=== PATIENT | female | born 1950 | race Two or more races ===

== ENCOUNTER 2016-07-31 19:59 | Inpatient (IN) | payer OTHER ==
[~2016-07-31] VITALS: Ht 162.6 cm; Wt 78.1 kg
[~2016-07-31 19:59] MED LIST: AMIODARONE 150 MG INJ ONE; ATROPINE 1 MG/10 ML SYRINGE ONE; CA CHLORIDE 10% 10 ML SYRINGE ONE; EPINEPHrine 0.1 MG/ML SYG ONE; MAGNESIUM SULFATE 1 GM/100 ML D5W IVPB ONE
[2016-07-31] MEDS ORDERED: LEVO125T75 PO (20:54)
[2016-07-31] MEDS ORDERED: HYD25 PO (20:54)
[2016-07-31] MEDS ORDERED: ENAL10TA PO (20:54)
[2016-07-31] MEDS ORDERED: SERT50TA6 PO (20:55)
[2016-07-31 20:59] LABS: ADD SCAN DIFF NO
[2016-07-31 21:02] VITALS: TEMP 98.7
[2016-07-31 21:03] LABS: BASOPHILS % 0.1 % (0.0-2.0); EOSINOPHILS % 0.1 % (0.0-7.0); HEMATOCRIT 45.3 % (37.0-47.0); HEMOGLOBIN 14.6 g/dl (12.0-16.0); LYMPHOCYTES # 1.3 10^3/ul (0.8-2.9); MEAN CORPUSCULAR HEMOGLOBIN 31.7 pg (29.0-33.0); MEAN CORPUSCULAR HGB CONC 32.2 g/dl (32.0-37.0); MEAN CORPUSCULAR VOLUME 98.3 fl (82.0-101.0); MEAN PLATELET VOLUME 12.5 fl (7.4-10.4); MONOCYTE # 0.7 10^3/ul (0.3-0.9); MONOCYTES % 5.1 % (0.0-11.0); NEUTROPHIL # 11.9 10^3/ul (1.6-7.5); NEUTROPHILS % 84.6 % (39.0-77.0); PLATELET COUNT 184 10^3/UL (140-415); RED BLOOD COUNT 4.61 10^6/ul (4.20-5.40); RED CELL DISTRIBUTION WIDTH 17.2 % (11.5-14.5)
--- NOTE | 2016-07-31 21:10 | RADRPT ---
PROCEDURE: XR Chest. CLINICAL INDICATION: Dyspnea TECHNIQUE: Single frontal chest x-ray. COMPARISON: None. FINDINGS: Cardiomegaly with increased vascular congestion and moderate pulmonary edema is seen. Findings are consistent with moderate CHF. Underlying pneumonia is not excluded. Increased density and atelecta sis is seen within the lung bases bilaterally. There is elevation of the hemidiaphragms. The upper mediastinal silhouette is unremarkable. There is no pneumothorax and the surrounding osseous struc tures are unremarkable. IMPRESSION: 1. Cardiomegaly with moderate CHF. 2. Dense atelectasis in the lung bases. Pneumonia is not excluded. RPTAT: HMJB .Tony Oconnor MD, Date Time Electronically viewed and signed by .Tony Oconnor MD, on 07/31/2016 21:10 .B/
[2016-07-31 21:18] LABS: INR 1.12; PROTIME 14.4 Sec (12.2-14.2); PT RATIO 1.1
[2016-07-31 21:19] LABS: PARTIAL THROMBOPLASTIN TIME 27.3 Sec (25.0-35.0)
[2016-07-31 21:24] LABS: AADO2 Arterial 138.3 mmHg (7.0-24.0); Arterial Base Excess 1.1 mmol/L (-3.0-3); Arterial COHb 0.9 % (0.0-3.0); Arterial Fraction of Oxyhgb 90.2 % (93.0-99.0); Arterial HCO3 23.4 mmol/L (22.0-26.0); Arterial MetHb 0.3 % (0.0-1.5); Arterial Total Hemglobin 14.5 g/dl (12.0-18.0); MODE NASAL CANNULA
[2016-07-31 21:25] LABS: ALBUMIN 3.4 g/dl (3.3-4.9); ALBUMIN/GLOBULIN RATIO 0.94; BILIRUBIN,INDIRECT 1.1 mg/dl (0-1.1); BILIRUBIN,TOTAL 1.1 mg/dl (0.2-1.3); CALCIUM 9.3 mg/dl (8.4-10.2); CREATININE 1.28 mg/dl (0.44-1.00); POTASSIUM 3.7 mmol/L (3.5-5.1)
[2016-07-31 21:45] LABS: TROPONIN-I 0.167 ng/ml (0.00-0.12)
[2016-07-31] MEDS ORDERED: CEFTRIAXONE 1 GM/50 ML (PMX) 50 ML IVPB ONE (22:00)
[2016-07-31] MEDS ORDERED: MIDAZOLAM (DRIP) 50 mg/50 mL 50 ML IV STA ×2 (22:17→22:26)
[2016-07-31 22:18] LABS: ADD UMIC YES; URINE BILIRUBIN (Dip) 2+ (NEGATIVE); URINE BLOOD (Dip) 2+ (NEGATIVE); URINE COLOR AMBER (YELLOW); URINE GLUCOSE (Dip) NEGATIVE (NEGATIVE); URINE KETONES (Dip) NEGATIVE (NEGATIVE); URINE LEUKOCYTE ESTERASE (Dip) NEGATIVE (NEGATIVE); URINE NITRITE (Dip) POSITIVE (NEGATIVE); URINE TOTAL PROTEIN (Dip) 1+ (NEGATIVE); URINE UROBILINOGEN (Dip) 2.0 E.U./dL (0.1-1.0)
[2016-07-31] MEDS ORDERED: LORAZEPAM 2 MG INJ ONE (22:21)
[2016-07-31] MEDS ORDERED: SODIUM CHLORIDE 0.9% 1L BAG IV* STA (22:26)
[2016-07-31 22:29] LABS: ICTOTEST NEGATIVE (NEGATIVE)
[2016-07-31] MEDS ORDERED: PIPER-TAZO 3.375 GM IV (PMX) 100 ML IVPB ONE (22:30)
[2016-07-31] MEDS ORDERED: LORAZEPAM 2 MG INJ IV ONE (22:30)
[2016-07-31] MEDS ORDERED: VANCOMYCIN 1 GM (PMX) 250 ML IVPB SCH (22:30)
[2016-07-31] MEDS ORDERED: NORepinephrine 8MG/250 ML (PMX 250 ML IV SCH ×2 (22:30→23:30)
[2016-07-31 22:31] LABS: BACTERIA,URINE FEW; MUCUS,URINE FEW; SQUAMOUS EPITHELIAL CELL,UR FEW
--- NOTE | 2016-07-31 23:19 | RADRPT ---
PROCEDURE: XR Chest. CLINICAL INDICATION: Airspace disease. The patient is status post intubation. TECHNIQUE: Single frontal view of the chest. COMPARISON: 07/31/2016. FINDINGS: New endotracheal intubation is seen with tip about 27 mm above the delfina. New right central venous line in place with tip in the superior vena cava right atrial junction. Cardiomegaly. Atherosclerotic calcifications in the thoracic aorta. Bilateral patchy air space dis ease again seen with questioned nodular changes in the right lung base and left lung base. Recommen d CT examination of the chest for further evaluation. No signs of pleural fluid or pneumothorax are seen. The osseous structures and soft tissues are unre markable. IMPRESSION: 1. New endotracheal intubation is seen, with tip about 27 mm above the delfina. 2. New right central venous line in place, with tip in the superior vena cava right atrial junction . 3. Bilateral air space disease again seen, with nodular changes suspected in the right lung and lef t lung bases. 4. Recommend CT examination of the chest for further evaluation. Physician Maddie Date Time Electronically viewed and signed by Physician Maddie on 07/31/2016 23:19 RS/
[2016-07-31 23:24] LABS: AADO2 Arterial 303.2 mmHg (7.0-24.0); Arterial Base Excess -3.4 mmol/L (-3.0-3); Arterial COHb 0.1 % (0.0-3.0); Arterial Fraction of Oxyhgb 96.4 % (93.0-99.0); Arterial HCO3 19.1 mmol/L (22.0-26.0); Arterial MetHb 0.2 % (0.0-1.5); Arterial Total Hemglobin 12.4 g/dl (12.0-18.0); Blood Gas Mean Airway Pressure 13; MODE VENT - AC
[2016-07-31] MEDS ORDERED: FUROSEMIDE 40 MG INJ ONE (23:26)
[2016-07-31] MEDS ORDERED: FUROSEMIDE 40 MG INJ IV ONE (23:30)
[2016-07-31] MEDS ORDERED: IPRATROPIUM (HFA) 12.9 GM INHALER INH PRN (23:30)
[2016-07-31] MEDS ORDERED: ONDANSETRON 4 MG INJ IV PRN (23:30)
[2016-07-31] MEDS ORDERED: ACETAMINOPHEN 650MG/20.3ML CUP PO PRN (23:30)
[2016-07-31] MEDS ORDERED: ALBUTEROL 18 GM INHALER INH PRN (23:30)
[2016-07-31] MEDS ORDERED: ROCURONIUM 50 MG INJ IV ONE (23:30)
[2016-07-31] MEDS ORDERED: LORAZEPAM 2 MG INJ IV PRN (23:30)
[2016-07-31] MEDS ORDERED: PROPOFOL 100 ML IV SCH (23:30)
--- NOTE | 2016-07-31 23:42 | ERA ---
ER Documentation Chief Complaint Date/Time DATE: 07/31/16 TIME: 23:21 Chief Complaint Weakness x10 days. pt is tachycardic and tachypneic. Low O2 sats HPI 65-year-old woman brought in by a friend for about a week of dizziness, shortness of breath, peripheral edema, and feeling weak. Patient denies fevers or chills, no chest pain, no vomiting or diarrhea. Patient was an extremely difficult historian and cannot provide further HPI. ROS All systems reviewed and are negative except as per history of present illness. Medications Home Meds Reported Medications Sertraline Hcl* (Sertraline Hcl*) 50 Mg Tablet, 50 MG PO DAILY, #30 TAB 07/31/16 Hydrochlorothiazide* (Hydrochlorothiazide*) 25 Mg Tab, 25 MG PO DAILY, #30 TAB 07/31/16 Levothyroxine Sodium* (Levothyroxine Sodium*) 125 Mcg Tablet, 125 MCG PO BEFORE BREAKFAST, #30 TAB 07/31/16 Enalapril Maleate* (Enalapril Maleate*) 10 Mg Tablet, 10 MG PO BID, TAB 07/31/16 Allergies Allergies: Coded Allergies: propoxyphene (Verified Adverse Reaction, Mild, 07/31/16) PMhx/Soc Hypertension, hypothyroidism, possible psychiatric illness History of Surgery: No Anesthesia Reaction: No Hx Neurological Disorder: No Hx Respiratory Disorders: No Hx Cardiac Disorders: Yes (htn) Hx Psychiatric Problems: No Hx Miscellaneous Medical Probl: Yes (hypothyroid) Hx Alcohol Use: No Hx Substance Use: No Hx Tobacco Use: No Smoking Status: Never smoker FmHx Family History: No diabetes Physical Exam Vitals Vital Signs Date Time Temp Pulse Resp B/P Pulse Ox O2 Delivery O2 Flow Rate FiO2 07/31/16 22:15 108 19 100 60 07/31/16 22:10 96 14 73/40 98 Mechanical Ventilator 07/31/16 21:02 98.7 103 30 122/84 94 Nasal Cannula 4.0 07/31/16 21:02 Nasal Cannula 4 07/31/16 21:02 4.0 07/31/16 20:14 98.5 111 32 113/75 93 Physical Exam GENERAL: Well-developed, elderly, appears debilitated and dehydrated, tachypneic , dyspneic, afebrile HEENT: Dry mucous membranes, pink conjunctiva, no cervical spine deformity, no goiter, no jaundice NEURO: Alert and oriented 2, appears confused, able to answer simple questions and follow simple commands, no nystagmus, pupils equal round reactive to light CARDIAC: Tachycardic and regular, no murmurs rubs LUNGS: Poor air entry bilaterally, bibasilar crackles, no wheezing or stridor ABDOMEN: Soft nontender, no guarding, no rigidity, no rebound, no psoas sign no obturator sign. SKIN: Warm and dry to touch, no abrasions or lacerations, no ulcers, no target lesion EXTREMITIES: Bilateral lower extremity peripheral edema 3+, calves bilaterally symmetrical, no popliteal cord sign PSYCH: Mildly agitated Result Diagram: 08/01/16 0450 08/01/16 0450 Results 24 hrs Laboratory Tests Test 07/31/16 20:29 07/31/16 20:35 07/31/16 20:40 07/31/16 21:20 Blood Gas Specimen Source Blood arterial Arterial Blood Date Drawn 07/31/2016 9:15:40 PM Arterial Blood pH (Temp corrected) 7.499 Arterial Blood pCO2 (Temp correct) 30.8mmhg Arterial Blood pO2 (Temp corrected) 61.0mmHG Arterial Blood HCO3 23.4mmol/L Arterial Blood Base Excess 1.1mmol/L Arterial Blood Oxygen Saturation 91.3mmHG Clarence Test N/A Arterial Blood Gas Puncture Site Right Brachial Arterial Blood Carboxyhemoglobin 0.9% Arterial Blood Methemoglobin 0.3% Blood Gas A-a O2 Differential 138.3mmHg Oxyhemoglobin Percent 90.2% Total Hemoglobin 14.5g/dl Blood Gas Temperature 37.0C Blood Gas Actual Respiration Rate 36 Blood Gas Modality NASAL CANNULA FiO2 33.0% Blood Gas Critical Value Read Back Jose SORENSEN Blood Gas Notified Whom BL Blood Gas Notified Time 07/31/2016 9:24:36 PM White Blood Count 14.010^3/ul Red Blood Count 4.6110^6/ul Hemoglobin 14.6g/dl Hematocrit 45.3% Mean Corpuscular Volume 98.3fl Mean Corpuscular Hemoglobin 31.7pg Mean Corpuscular Hemoglobin Concent 32.2g/dl Red Cell Distribution Width 17.2% Platelet Count 47746^3/UL Mean Platelet Volume 12.5fl Neutrophils % 84.6% Lymphocytes % 9.0% Monocytes % 5.1% Eosinophils % 0.1% Basophils % 0.1% Nucleated Red Blood Cells % 0.0/100WBC Neutrophils # 11.910^3/ul Lymphocytes # 1.310^3/ul Monocytes # 0.710^3/ul Eosinophils # 0.010^3/ul Basophils # 0.010^3/ul Nucleated Red Blood Cells # 0.010^3/ul Prothrombin Time 14.4Sec Prothrombin Time Ratio 1.1 INR International Normalized Ratio 1.12 Activated Partial Thromboplast Time 27.3Sec Sodium Level 142mmol/L Potassium Level 3.7mmol/L Chloride Level 104mmol/L Carbon Dioxide Level 26mmol/L Anion Gap 16 Blood Urea Nitrogen 26mg/dl Creatinine 1.28mg/dl Glucose Level 133mg/dl Lactic Acid Level 4.8mmol/L Calcium Level 9.3mg/dl Total Bilirubin 1.1mg/dl Direct Bilirubin 0.00mg/dl Indirect Bilirubin 1.1mg/dl Aspartate Amino Transf (AST/SGOT) 41IU/L Alanine Aminotransferase (ALT/SGPT) 63IU/L Alkaline Phosphatase 93IU/L Troponin I 0.167ng/ml B-Type Natriuretic Peptide 14329UI/ML Total Protein 7.0g/dl Albumin 3.4g/dl Globulin 3.60g/dl Albumin/Globulin Ratio 0.94 Lipase 147U/L Bedside Glucose 110mg/dL Urine Color SMIEON Urine Clarity CLOUDY Urine pH 6.0 Urine Specific [place] 1.025 Urine Ketones NEGATIVE Urine Nitrite POSITIVE Urine Bilirubin 2+ Urine Ictotest NEGATIVE Urine Urobilinogen 2.0 E.U./dL Urine Leukocyte Esterase NEGATIVE Urine Microscopic RBC 5-10/HPF Urine Microscopic WBC 0-2/HPF Urine Squamous Epithelial Cells FEW Urine Bacteria FEW Urine Mucus FEW Urine Hemoglobin 2+ Urine Glucose NEGATIVE% Urine Total Protein 1+ Test 07/31/16 22:25 Lactic Acid Level 3.9mmol/L Current Medications Medications (Trade) Dose Ordered Sig/Cyndi Route PRN Reason Start Time Stop Time Status Last Admin Dose Admin Ceftriaxone Sodium 50 ml @ 100 mls/hr ONCE ONCE IVPB 07/31/16 22:00 07/31/16 22:29 DC 07/31/16 21:42 Midazolam HCl (Versed) 50 ml @ 3 mls/hr ONCE STAT IV 07/31/16 22:17 08/01/16 01:06 DC 07/31/16 22:23 Lorazepam (Ativan) 2 mg STK-MED ONCE .ROUTE 07/31/16 22:21 07/31/16 22:22 DC Procedures/[facility] IV line was established patient was placed on cardiac tech rhythm strip revealed a sinus tachycardia at 110 bpm with upright P and T waves. Patient was afebrile. Blood and urine cultures have been ordered results are pending I will follow-up. Mayo catheter was later placed. Patient was placed on high flow oxygen and with a trial of high flow oxygen patient remained dyspneic and tachypnic. Initial ABG performed, read by me revealed a pH of 7.5, PCO2 31, PO2 61 revealing respiratory alkalosis and hypoxemia. EKG performed, read by me revealed a sinus tachycardia at 104 bpm, left axis deviation, narrow QRS complex, no obvious ST elevations or depressions noted although there are poor R-wave progression in precordial leads. One view chest x-ray performed, read by me there is cardiomegaly and bilateral pulmonary edema with bilateral infiltrates, no pneumothorax, no air under the diaphragm. CBC reveals a leukocytosis of 14, electrolytes revealed dehydration and acute kidney injury with a BUN/creatinine of 26/1.3, liver function tests were within normal limits, troponin positive at 0.2 and BNP elevated at over 55,000. Lactic acid elevated at 4.8, repeat lactic acid 3.9 and elevated. Urine analysis was positive for infection. Patient is in respiratory distress despite high flow oxygen and has an abnormal ABG. I suspect severe sepsis versus septic shock and feel the patient will benefit from intubation. She requires high-dose IV fluid resuscitation but has pulmonary edema and will also require diuresis and I do not suspect she can maintain adequate breathing if I administer IV fluids, which she also requires. I spoke to her clearly and told her about the risks and benefits of intubation and central line placement. Patient agreed both verbally and signed the consent forms. I ordered 3 L normal saline intravenously for septic shock, furosemide 80 mg IV for diuresis, ceftriaxone 1 g IV, Zosyn 3.375 g IV, vancomycin 1 g IV. Patient also received aspirin 300 mg per rectum for cardioprotective measures. Endotracheal Intubation by me: Pre assessment performed. See preceding note for details. Pre-oxygenation performed with 100% oxygen RSI: Performed w/o complication or hypoxic events. Medications as ordered. Blade: Mac 4 ET Tube: 7.5 cm Depth: 23 cm at the lip Intubation confirmed by colorimetric CO2, equal breath sounds, quiet over the stomach. Central Line Placement by me: Patient consented, sterilely draped, full prep, gown, glove, mask, time out performed. Anesthesia: 1% lidocaine locally Location: Right subclavian vein Device: Multiple lumen Technique: Seldinger technique. Secured with suture. Results: Venous return from all ports with easy saline flush. No complications. The entire Guide wire retrieved and disposed of. Chest X-ray 1V Interpreted by me: ET tube 3 cm above the delfina. Normal soft tissue, No pneumothorax. Positive cardiomegaly and bilateral pulmonary infiltrates and edema. Central line is in place in the right subclavian vein Patient's infectious symptoms have not stabilized and the patient is at risk of rapid decompensation. The patient will be admitted for careful hydration, antibiotic therapy, and infectious source control. Severe Sepsis Assessment: Infectious Source: Bilateral pneumonia and urinary tract infection End organ damage indicated by: Lactate > 2.0 mmol/L Hypotension( SBP < 90 or >40 mmHG drop or MAP < 65) Acute Resp Failure (sat < 92% w/o oxygen) Severe Sepsis Managment: Blood Cultures X 2 before broad spectrum antibiotics initiated within 3 hours of recognition. 30 ml/kg NS bolus Completed Initial Lactate: 4.8 Repeat Lactate 3.9 Critical Care: Time: 50 minutes, this was time separate from other procedures Treatments/Evaluations: Emergent fluid management, while maintaining close respiratory support. Immediate broad spectrum antibiotic therapy. Simultaneous assessment for possible sources in order to direct therapy. Consideration for invasive and chemical support to prevent respiratory or cardiac collapse. Septic Shock Assessment (1 hour post 30 ml/kg fluid bolus): Hypotension (SBP < 90 or 40 mmHg drop, MAP < 65): Yes Lactic acid > 4.0 yes Perfusion Reassessment for Septic Shock: Temp afebrile, pulse 110 bpm, blood pressure 100/60 mmHg, respiratory rate intubated at 16 breaths per minute Heart Exam: Tachycardic Lung Exam: Bilateral crackles Capillary Refill: Delayed Peripheral Pulses: Radially present Skin: Mottled, pale Hypotensive Treatment (not required for isolated lactic acid elevation): Comfort Care: No Central LIne: In the right subclavian vein Vasopressor started: norepinephrine I considered further perfusion assessment with CVP measurement, SCVO2, bedside ultrasound volume assessment, passive leg raise, trial of further fluid bolus. And preceded with IV hydration, diuretics, IV antibiotics. Patient was intubated and placed on a Versed drip and norepinephrine titrated to keep SBP over 90 mmHg. Repeat arterial blood gas postintubation improved revealing a pH of 7.46, PCO2 27, PO2 95 revealing respiratory alkalosis and improved PaO2. For continued sedation patient required lorazepam boluses followed by midazolam drip. Accepting Care Team: Current data and ongoing care discussed. Time: Time of admission Primary Provider: Hospitalist Consulting: Infectious disease, pulmonology, cardiology Outstanding Data: none Departure Diagnosis: Primary Impression: Septic shock Additional Impressions: Bilateral pneumonia Qualified Code: J18.9 - Pneumonia of both lower lobes due to infectious organism CHF (congestive heart failure) Qualified Code: I50.21 - Acute systolic congestive heart failure UTI (urinary tract infection) Qualified Code: N30.00 - Acute cystitis without hematuria Acute kidney injury Dehydration Acute respiratory failure Qualified Code: J96.01 - Acute respiratory failure with hypoxia Acute encephalopathy Condition: Critical SCOT HUERTA MD July 31, 2016 23:38 Albuterol (Ventolin Hfa) 4 puff Q2H RESP THERAPY PRN INH SHORTNESS OF BREATH 07/31/16 23:30 Ipratropium [place] (Atrovent Hfa) 4 puff Q2H RESP THERAPY PRN INH SHORTNESS OF BREATH 07/31/16 23:30 Acetaminophen (Tylenol Liquid) 650 mg Q6H PRN PO PAIN LEVEL 1-3 OR FEVER 07/31/16 23:30 Lorazepam (Ativan) 1 mg Q2H PRN IV ANXIETY 07/31/16 23:30 Famotidine (Pepcid Iv) 20 mg DAILY IV 08/01/16 09:00 Heparin Sodium (Porcine) 5000 unit 5,000 unit Q12 SC 08/01/16 09:00 Propofol 100 ml @ 2.7 mls/hr PER PROTOCOL IV 07/31/16 23:30 Norepinephrine 250 ml @ 1.875 mls/ hr PER PROTOCOL IV 07/31/16 23:30 Cefepime HCl (Maxipime 1gm/50 ml (Pmx)) 50 ml @ 100 mls/hr Q12 IVPB 08/01/16 09:00 Rocuronium [place] (Zemuron) 60 mg ONCE ONCE IV 07/31/16 23:30 07/31/16 23:31 DC 07/31/16 23:28 Furosemide (Lasix) 80 mg ONCE ONCE IV 07/31/16 23:30 07/31/16 23:31 DC 07/31/16 23:32 Furosemide (Lasix) 40 mg STK-MED ONCE .ROUTE 07/31/16 23:26 07/31/16 23:27 DC Midazolam HCl (Versed) 2 mg ONCE ONCE IV 08/01/16 00:00 08/01/16 00:01 Aspirin (Aspirin) [address] 08/01/16 00:00 08/01/16 00:01 [facility] IV line was established patient was placed on cardiac tech rhythm strip revealed a sinus tachycardia at 110 bpm with upright P and T waves. Patient was afebrile. Blood and urine cultures have been ordered results are pending I will follow-up. Mayo catheter was later placed. Patient was placed on high flow oxygen and with a trial of high flow oxygen patient remained dyspneic and tachypnic. Initial ABG performed, read by me revealed a pH of 7.5, PCO2 31, PO2 61 revealing respiratory alkalosis and hypoxemia. EKG performed, read by me revealed a sinus tachycardia at 104 bpm, left axis deviation, narrow QRS complex, no obvious ST elevations or depressions noted although there are poor R-wave progression in precordial leads. One view chest x-ray performed, read by me there is cardiomegaly and bilateral pulmonary edema with bilateral infiltrates, no pneumothorax, no air under the diaphragm. CBC reveals a leukocytosis of 14, electrolytes revealed dehydration and acute kidney injury with a BUN/creatinine of 26/1.3, liver function tests were within normal limits, troponin positive at 0.2 and BNP elevated at over 55,000. Lactic acid elevated at 4.8, repeat lactic acid 3.9 and elevated. Urine analysis was positive for infection. Patient is in respiratory distress despite high flow oxygen and has an abnormal ABG. I suspect severe sepsis versus septic shock and feel the patient will benefit from intubation. She requires high-dose IV fluid resuscitation but has pulmonary edema and will also require diuresis and I do not suspect she can maintain adequate breathing if I administer IV fluids, which she also requires. I spoke to her clearly and told her about the risks and benefits of intubation and central line placement. Patient agreed both verbally and signed the consent forms. I ordered 3 L normal saline intravenously for septic shock, furosemide 80 mg IV for diuresis, ceftriaxone 1 g IV, Zosyn 3.375 g IV, vancomycin 1 g IV. Patient also received aspirin 300 mg per rectum for cardioprotective measures. Endotracheal Intubation by me: Pre assessment performed. See preceding note for details. Pre-oxygenation performed with 100% oxygen RSI: Performed w/o complication or hypoxic events. Medications as ordered. Blade: Mac 4 ET Tube: 7.5 cm Depth: 23 cm at the lip Intubation confirmed by colorimetric CO2, equal breath sounds, quiet over the stomach. Central Line Placement by me: Patient consented, sterilely draped, full prep, gown, glove, mask, time out performed. Anesthesia: 1% lidocaine locally Location: Right subclavian vein Device: Multiple lumen Technique: Seldinger technique. Secured with suture. Results: Venous return from all ports with easy saline flush. No complications. The entire Guide wire retrieved and disposed of. Chest X-ray 1V Interpreted by me: ET tube 3 cm above the delfina. Normal soft tissue, No pneumothorax. Positive cardiomegaly and bilateral pulmonary infiltrates and edema. Central line is in place in the right subclavian vein Patient's infectious symptoms have not stabilized and the patient is at risk of rapid decompensation. The patient will be admitted for careful hydration, antibiotic therapy, and infectious source control. Severe Sepsis Assessment: Infectious Source: Bilateral pneumonia and urinary tract infection End organ damage indicated by: [Lactate > 2.0 mmol/L Hypotension( SBP < 90 or >40 mmHG drop or MAP < 65) Acute Resp Failure (sat < 92% w/o oxygen) Severe Sepsis Managment: Blood Cultures X 2 before broad spectrum antibiotics initiated within 3 hours of recognition. 30 ml/kg NS bolus Completed Initial Lactate: 4.8 Repeat Lactate 3.9 Critical Care: Time: 50 minutes, this was time separate from other procedures Treatments/Evaluations: Emergent fluid management, while maintaining close respiratory support. Immediate broad spectrum antibiotic therapy. Simultaneous assessment for possible sources in order to direct therapy. Consideration for invasive and chemical support to prevent respiratory or cardiac collapse. Septic Shock Assessment (1 hour post 30 ml/kg fluid bolus): Hypotension (SBP < 90 or 40 mmHg drop, MAP < 65): Yes Lactic acid > 4.0 yes Perfusion Reassessment for Septic Shock: Temp afebrile, pulse 110 bpm, blood pressure 100/60 mmHg, respiratory rate intubated at 16 breaths per minute Heart Exam: Tachycardic Lung Exam: Bilateral crackles Capillary Refill: Delayed Peripheral Pulses: Radially present Skin: Mottled, pale Hypotensive Treatment (not required for isolated lactic acid elevation): Comfort Care: No Central LIne: In the right subclavian vein Vasopressor started: norepinephrine I considered further perfusion assessment with CVP measurement, SCVO2, bedside ultrasound volume assessment, passive leg raise, trial of further fluid bolus. And preceded with IV hydration, diuretics, IV antibiotics. Patient was intubated and placed on a Versed drip and norepinephrine titrated to keep SBP over 90 mmHg. Repeat arterial blood gas postintubation improved revealing a pH of 7.46, PCO2 27, PO2 95 revealing respiratory alkalosis and improved PaO2. Accepting Care Team: Current data and ongoing care discussed. Time: Time of admission Primary Provider: Hospitalist Consulting: Infectious disease, pulmonology, cardiology Outstanding Data: none Departure Diagnosis: Primary Impression: Septic shock Additional Impressions: Bilateral pneumonia Qualified Code: J18.9 - Pneumonia of both lower lobes due to infectious organism CHF (congestive heart failure) Qualified Code: I50.21 - Acute systolic congestive heart failure UTI (urinary tract infection) Qualified Code: N30.00 - Acute cystitis without hematuria Acute kidney injury Dehydration Acute respiratory failure Qualified Code: J96.01 - Acute respiratory failure with hypoxia Acute encephalopathy Condition: Critical SCOT HUERTA MD July 31, 2016 23:38
[2016-08-01] VITALS (82 sets, daily range): BP systolic 63–120; BP diastolic 50–86; PULSE 86–117; RESP 12–37; Ht 162.6 cm; Wt 78.1 kg
[2016-08-01] MEDS ORDERED: ASPIRIN 300 MG SUPP PR ONE
[2016-08-01] MEDS: MIDAZOLAM (DRIP) 50 mg/50 mL 50 ML IV SCH ×3 (00:06→11:08)
[2016-08-01] MEDS: DEXTROSE 5%-0.45% NACL 1,000 ML IV SCH ×2 (01:31→11:07)
[2016-08-01] MEDS: POTASSIUM CHLORIDE 50 ML IVPB SCH ×3 (02:00→08:01)
[2016-08-01] MEDS ORDERED: ETOMIDATE 20 MG INJ IV ONE (02:30)
[2016-08-01] MEDS ORDERED: MIDAZOLAM 1 MG/ML 2 ML INJ IV ONE ×2 (02:30)
[2016-08-01] MEDS ORDERED: ROCURONIUM 50 MG INJ IV ONE (02:30)
[2016-08-01] MEDS ORDERED: SUCCINYLCHOLINE CHLORIDE 100 MG/5 ML SYG IV ONE (02:30)
--- NOTE | 2016-08-01 02:45 | RADRPT ---
PROCEDURE: XR Chest. CLINICAL INDICATION: Nasogastric tube placement. TECHNIQUE: Single frontal view of the chest. COMPARISON: Chest dated 07/31/2016, about 3 hours ago. FINDINGS: Endotracheal intubation is seen with tip about 2-3 cm above the delfina. Nasogastric tube in place w ith tip and side port within the mid to distal gastric lumen, although the tip is off the bottom of the film. Cardiomegaly. Bilateral dense patchy air space disease with nodular features, and question mass akshat christopher calcified lymph nodes the right hilum. Recommend CT correlation. No signs of pleural fluid or pneumothorax are seen. The osseous structures and soft tissues are unremarkable. IMPRESSION: 1. New nasogastric tube in place with tip and side port in the mid to distal stomach. 2. Dense patchy air space disease with nodular features. 3. Recommend CT correlation, and is findings are suspicious for parenchymal lung nodules/masses. RPTAT: [facility] Physician Maddie Date Time Electronically viewed and signed by Physician Maddie on 08/01/2016 02:44 RS/
[2016-08-01] MEDS: NORepinephrine 8MG/250 ML (PMX 250 ML IV SCH ×2 (03:41→17:22)
[2016-08-01 05:35] LABS: ADD SCAN DIFF NO
[2016-08-01 05:44] LABS: BASOPHILS % 0.1 % (0.0-2.0); EOSINOPHILS % 0.1 % (0.0-7.0); HEMATOCRIT 37.9 % (37.0-47.0); HEMOGLOBIN 12.1 g/dl (12.0-16.0); LYMPHOCYTES # 1.2 10^3/ul (0.8-2.9); LYMPHOCYTES % 8.5 % (15.0-51.0); MEAN CORPUSCULAR HEMOGLOBIN 31.4 pg (29.0-33.0); MEAN CORPUSCULAR HGB CONC 31.9 g/dl (32.0-37.0); MEAN CORPUSCULAR VOLUME 98.4 fl (82.0-101.0); MEAN PLATELET VOLUME 12.1 fl (7.4-10.4); MONOCYTE # 0.8 10^3/ul (0.3-0.9); MONOCYTES % 5.2 % (0.0-11.0); NEUTROPHIL # 12.3 10^3/ul (1.6-7.5); NEUTROPHILS % 85.3 % (39.0-77.0); PLATELET COUNT 177 10^3/UL (140-415); RED BLOOD COUNT 3.85 10^6/ul (4.20-5.40); RED CELL DISTRIBUTION WIDTH 16.7 % (11.5-14.5); WHITE BLOOD COUNT 14.5 10^3/ul (4.8-10.8)
[2016-08-01 06:13] LABS: ALBUMIN 2.4 g/dl (3.3-4.9); ALBUMIN/GLOBULIN RATIO 0.8; BILIRUBIN,INDIRECT 0.6 mg/dl (0-1.1); BILIRUBIN,TOTAL 0.6 mg/dl (0.2-1.3); CALCIUM 7.7 mg/dl (8.4-10.2); CREATININE 1.17 mg/dl (0.44-1.00); TOTAL PROTEIN 5.4 g/dl (6.1-8.1)
--- NOTE | 2016-08-01 07:58 | HP ---
DATE OF ADMISSION: 07/31/2016 CHIEF COMPLAINT: Shortness of breath. HISTORY OF PRESENT ILLNESS: The patient is a 65-year-old female with a history of hypertension, hyp othyroidism, and depression, based on her home medications, who presented to the emergency departcaro center with shortness of breath as well as multiple other complaints. Note that the patient is currently intubated, and as such, information has been gathered from talking to the ER physician, katey rainey, as well as talking to the ER nurse. It seems like the patient was also complaining of generalize d weakness for over a week. When she presented to the ER, her blood pressure was 113/75, heart rate 111, respiratory rate 32, te mperature 98.5, oxygen saturation 93% on room air. Her laboratory value shows a WBC of 14,000. BUN 26, creatinine 1.28. Troponin 0.167. BNP 55,000. Her initial lactate was 4.8, and her chest x-ra y shows cardiomegaly with moderate CHF as well as dense atelectasis at the lung bases with pneumonia not being able to be excluded. The patient became more hypoxic while she was in the ER with increa sed use of accessory muscles, and as such, the decision was made to intubate the patient. Initial A BG shows a pH of 7.5, pCO2 of 31, pO2 61, bicarbonate 23 on 33% FIO2. After intubation, pO2 increas ed to 95 on 60% FIO2 on a vent. REVIEW OF SYSTEMS: Unable to assess. PAST MEDICAL HISTORY: As per HPI. PAST SURGICAL HISTORY: Unknown. SOCIAL HISTORY: Unknown. ALLERGIES: PROPOXYPHENE. HOME MEDICATION: 1. Enalapril 2. Hydrochlorothiazide. 3. Levothyroxine. 4. Sertraline. PHYSICAL EXAMINATION: VITAL SIGNS: Blood pressure 118/87, heart rate 99, respiratory rate 16, temperature 98.7, oxygen sa turation 100% on 60% FIO2 on a vent. GENERAL: The patient intubated, sedated, looks comfortable on vent. HEENT: No obvious head deformity. Pupils are somehow sluggish but definitely reactive to light. CARDIOVASCULAR: Slightly tachycardic with regular rhythm. LUNGS: Decreased breath sounds at the bases. ABDOMEN: Soft, nondistended. Positive bowel sounds. EXTREMITIES: Bilateral pitting edema. NEUROLOGIC: Currently, the patient is intubated and sedated, and as such, unable to assess fully. LABORATORY: Pertinent positives as mentioned in the HPI. IMPRESSION: 1. Acute hypoxic respiratory failure status post intubation. 2. Sepsis as evidenced by leukocytosis and tachycardia, most likely secondary to pneumonia. 3. Lactic acidosis. 4. Congestive heart failure exacerbation. 5. Presumed acute kidney injury. 6. Positive troponin 7. History of hypertension. 8. History of hypothyroidism. 9. History of depression. PLAN: Continue ICU monitoring. We will continue ventilator support. She will be placed on antibio tic. We will follow up on culture results including urine culture, blood culture, and also we will order tracheal aspirate to be sent for respiratory culture. We will place pulmonary and ID as well as cardiology consult. We will obtain a 2D echo. We will trend troponins. We will continue IV flu id. If no improvement in kidney function, we will obtain a renal ultrasound and also place a nephro logy consult. Further workup and management per clinical course. Dictated By: LUIS ARMANDO OMALLEY/DAISY Conf#: [id number] DID#: [id number]
[2016-08-01] MEDS: FAMOTIDINE 20 MG INJ IV SCH (09:17)
[2016-08-01] MEDS: HEPARIN 5,000 UNIT/0.5 ML VIAL SC SCH ×2 (09:18→21:18)
[2016-08-01] MEDS: CEFEPIME 1GM/50 ML (PMX) 50 ML IVPB SCH ×2 (09:57→21:11)
[2016-08-01] MEDS: FENTAnyl (DRIP) 1000 mcg/100mL 100 ML IV SCH (13:45)
[2016-08-01] MEDS: PROPOFOL 100 ML IV SCH (13:46)
[2016-08-01] MEDS: SERTRALINE 50 MG TAB NGT SCH (14:21)
[2016-08-01] MEDS: AZITHROMYCIN 500MG/NS (PMX) 250 ML IVPB SCH (14:21)
[2016-08-01] MEDS: LEVOTHYROXINE 100 MCG VIAL IV SCH (14:21)
[2016-08-01 14:26] LABS: THYROID STIMULATING HORMONE 12.8 MIU/L (0.465-4.680)
[2016-08-01] MEDS: POTASSIUM CHLORIDE 50 ML IVPB PRN (16:16)
--- NOTE | 2016-08-01 17:05 | PN ---
Date/Time of Note Date/Time of Note DATE: 08/01/16 TIME: 16:55 Assessment/Plan VTE Prophylaxis VTE Prophylaxis Intervention: SCD's Assessment/Plan Chief Complaint/Hosp Course 1. Acute hypoxic respiratory failure status post intubation Continue vent support, pulmonology consult 2. Shock secondary to severe heart failure versus sepsis from pneumonia Continue pressor support with Levophed and now dobutamine Follow-up on 2D echo Cardiology consult Diuretics held secondary to hypotension Continue cefepime and azithromycin 3. Acute kidney injury with CKD with oliguria secondary to shock and/or cardiorenal syndrome Consult nephrology 4. Congestive heart failure exacerbation Follow-up on 2D echo, hold diuretics secondary to shock 5. Non-STEMI likely type II from shock Cardiology consultation 6. Hypokalemia-replete 7. History of hypertension 8. History of hypothyroidism. 9. History of depression According to patient's friends she has been not taking her medications, has not been acting the same and has not been attending her usual activities for the past several weeks Prophylaxis: SCDs Problems: Subjective 24 Hr Interval Summary Subjective hx not possible: pt non-verbal Exam/Review of Systems Vital Signs Vitals Vital Signs Date Time Temp Pulse Resp B/P Pulse Ox O2 Delivery O2 Flow Rate FiO2 08/01/16 15:15 98 18 75/54 99 08/01/16 15:00 Mechanical Ventilator 08/01/16 13:50 40 08/01/16 12:00 98.2 07/31/16 21:02 4.0 Intake and Output 07/31/16 07/31/16 08/01/16 15:00 23:00 07:00 Intake Total 50 ml 851.5 ml Output Total 2530 ml Balance 50 ml -1678.5 ml Exam Constitutional: non-verbal ENMT: intubated Respiratory: clear to auscultation Cardiovascular: regular rate and rhythm Gastrointestinal: soft, No distended Musculoskeletal: nl extremities to inspection Results Result Diagram: 08/01/16 0450 08/01/16 1242 Results 24 hrs Laboratory Tests Test 07/31/16 20:29 07/31/16 20:35 07/31/16 20:40 07/31/16 21:20 Blood Gas Specimen Source Blood arterial Arterial Blood Date Drawn 07/31/2016 9:15:40 PM Arterial Blood pH (Temp corrected) 7.499 H Arterial Blood pCO2 (Temp correct) 30.8 L Arterial Blood pO2 (Temp corrected) 61.0 L Arterial Blood HCO3 23.4 Arterial Blood Base Excess 1.1 Arterial Blood Oxygen Saturation 91.3 L Clarence Test N/A Arterial Blood Gas Puncture Site Right Brachial Arterial Blood Carboxyhemoglobin 0.9 Arterial Blood Methemoglobin 0.3 Blood Gas A-a O2 Differential 138.3 H Oxyhemoglobin Percent 90.2 L Total Hemoglobin 14.5 Blood Gas Temperature 37.0 Blood Gas Actual Respiration Rate 36 Blood Gas Modality NASAL CANNULA FiO2 33.0 Blood Gas Critical Value Read Back Jose SORENSEN Blood Gas Notified Whom BL Blood Gas Notified Time 07/31/2016 9:24:36 PM White Blood Count 14.0 H Red Blood Count 4.61 Hemoglobin 14.6 Hematocrit 45.3 Mean Corpuscular Volume 98.3 Mean Corpuscular Hemoglobin 31.7 Mean Corpuscular Hemoglobin Concent 32.2 Red Cell Distribution Width 17.2 H Platelet Count 184 Mean Platelet Volume 12.5 H Neutrophils % 84.6 H Lymphocytes % 9.0 L Monocytes % 5.1 Eosinophils % 0.1 Basophils % 0.1 Nucleated Red Blood Cells % 0.0 Neutrophils # 11.9 H Lymphocytes # 1.3 Monocytes # 0.7 Eosinophils # 0.0 Basophils # 0.0 Nucleated Red Blood Cells # 0.0 Prothrombin Time 14.4 H Prothrombin Time Ratio 1.1 INR International Normalized Ratio 1.12 Activated Partial Thromboplast Time 27.3 Sodium Level 142 Potassium Level 3.7 Chloride Level 104 Carbon Dioxide Level 26 Anion Gap 16 Blood Urea Nitrogen 26 H Creatinine 1.28 H Glucose Level 133 Lactic Acid Level 4.8 *H Calcium Level 9.3 Total Bilirubin 1.1 Direct Bilirubin 0.00 Indirect Bilirubin 1.1 Aspartate Amino Transf (AST/SGOT) 41 Alanine Aminotransferase (ALT/SGPT) 63 Alkaline Phosphatase 93 Troponin I 0.167 *H B-Type Natriuretic Peptide 06597 H Total Protein 7.0 Albumin 3.4 Globulin 3.60 H Albumin/Globulin Ratio 0.94 Lipase 147 Bedside Glucose 110 Urine Color SIMEON Urine Clarity CLOUDY Urine pH 6.0 Urine Specific [place] 1.025 Urine Ketones NEGATIVE Urine Nitrite POSITIVE H Urine Bilirubin 2+ H Urine Ictotest NEGATIVE Urine Urobilinogen 2.0 E.U./dL H Urine Leukocyte Esterase NEGATIVE Urine Microscopic RBC 5-10 Urine Microscopic WBC 0-2 Urine Squamous Epithelial Cells FEW Urine Bacteria FEW Urine Mucus FEW Urine Hemoglobin 2+ H Urine Glucose NEGATIVE Urine Total Protein 1+ H Test 07/31/16 22:25 07/31/16 22:26 08/01/16 00:30 08/01/16 00:39 Lactic Acid Level 3.9 H 2.2 Blood Gas Specimen Source Blood arterial Arterial Blood Date Drawn 07/31/2016 11:13:17 PM Arterial Blood pH (Temp corrected) 7.463 H Arterial Blood pCO2 (Temp correct) 27.3 L Arterial Blood pO2 (Temp corrected) 94.6 Arterial Blood HCO3 19.1 L Arterial Blood Base Excess -3.4 L Arterial Blood Oxygen Saturation 96.7 Clarence Test N/A Arterial Blood Gas Puncture Site Right Brachial Arterial Blood Carboxyhemoglobin 0.1 Arterial Blood Methemoglobin 0.2 Blood Gas A-a O2 Differential 303.2 H Oxyhemoglobin Percent 96.4 Total Hemoglobin 12.4 Blood Gas Temperature 37.0 Blood Gas Respiration Rate 16.0 Blood Gas Actual Respiration Rate 16 Blood Gas Modality VENT - AC FiO2 60.0 Blood Gas Tidal Volume 550.0 Blood Gas Mean Airway Pressure 13 Blood Gas Low PEEP Setting 5.0 Blood Gas Inspiratory Pressure 33.0 Blood Gas Critical Value Read Back Jose SORENSEN Blood Gas Notified Whom BL Blood Gas Notified Time 07/31/2016 11:23:51 PM Bedside Glucose 123 Potassium Level 2.8 *L Test 08/01/16 04:50 08/01/16 05:02 08/01/16 12:42 08/01/16 13:30 White Blood Count 14.5 H Red Blood Count 3.85 L Hemoglobin 12.1 Hematocrit 37.9 Mean Corpuscular Volume 98.4 Mean Corpuscular Hemoglobin 31.4 Mean Corpuscular Hemoglobin Concent 31.9 L Red Cell Distribution Width 16.7 H Platelet Count 177 Mean Platelet Volume 12.1 H Neutrophils % 85.3 H Lymphocytes % 8.5 L Monocytes % 5.2 Eosinophils % 0.1 Basophils % 0.1 Nucleated Red Blood Cells % 0.0 Neutrophils # 12.3 H Lymphocytes # 1.2 Monocytes # 0.8 Eosinophils # 0.0 Basophils # 0.0 Nucleated Red Blood Cells # 0.0 Sodium Level 141 Potassium Level 3.0 L 3.7 Chloride Level 110 Carbon Dioxide Level 26 Anion Gap 8 # Blood Urea Nitrogen 23 H Creatinine 1.17 H Glucose Level 164 Calcium Level 7.7 L Total Bilirubin 0.6 Direct Bilirubin 0.00 Indirect Bilirubin 0.6 Aspartate Amino Transf (AST/SGOT) 43 Alanine Aminotransferase (ALT/SGPT) 72 H Alkaline Phosphatase 80 Troponin I 0.202 *H Total Protein 5.4 #L Albumin 2.4 #L Globulin 3.00 Albumin/Globulin Ratio 0.80 Bedside Glucose 133 Creatine Kinase 57 Vitamin B12 Level 796 Thyroid Stimulating Hormone (TSH) 12.800 H Random Cortisol 28.7 Medications Medications Current Medications Dextrose/Sodium Chloride (D5-1/2ns) 1,000 ml @ 25 mls/hr Q24H IV Last administered on 08/01/16 11:07; Admin Dose 100 MLS/HR; Start 07/31/16 at 23:04 Ondansetron HCl (Zofran Inj) 4 mg Q6H PRN IV NAUSEA AND/OR VOMITING; Start at 23:30 Acetaminophen (Tylenol Liquid) 650 mg Q6H PRN PO PAIN LEVEL 1-3 OR FEVER; Start 07/31/16 at 23:30 Lorazepam (Ativan) 1 mg Q2H PRN IV ANXIETY; Start 07/31/16 at 23:30 Famotidine (Pepcid Iv) 20 mg DAILY IV Last administered on 08/01/16 09:17; Admin Dose 20 MG; Start 08/01/16 at 09:00 Heparin Sodium (Porcine) 5000 unit 5,000 unit Q12 SC Last administered on 09:18; Admin Dose 5,000 UNIT; Start 08/01/16 at 09:00 Cefepime HCl 50 ml @ 100 mls/hr Q12 IVPB Last administered on 08/01/16 09:57 ; Admin Dose 100 MLS/HR; Start 08/01/16 at 09:00 Norepinephrine 250 ml @ 1.875 mls/ hr TITRATE IV Last administered on 03:41; Admin Dose 3.75 MLS/HR; Start 08/01/16 at 03:30 Norepinephrine 16 mg/Dextrose 500 ml @ 1.87 mls/hr TITRATE IV ; Start 08/01/16 at 03:30 Azithromycin 250 ml @ 250 mls/hr Q24H IVPB Last administered on 08/01/16 14: 21; Admin Dose 250 MLS/HR; Start 08/01/16 at 13:30 Fentanyl 100 ml @ 5 mls/hr TITRATE IV Last administered on 08/01/16 13:45; Admin Dose 5 MLS/HR; Start 08/01/16 at 13:30 Propofol (Diprivan) 100 ml @ 2.343 mls/ hr Q12H IV Last administered on 13:46; Admin Dose 2.343 MLS/HR; Start 08/01/16 at 13:30 Levothyroxine Sodium (Synthroid Iv) 75 mcg DAILY IV Last administered on 14:21; Admin Dose 75 MCG; Start 08/01/16 at 13:30 Sertraline HCl 50 mg 50 mg DAILY NGT Last administered on 08/01/16 14:21; Admin Dose 50 MG; Start 08/01/16 at 13:30 Dobutamine HCl/ Dextrose 250 ml @ 11.715 mls/ hr TITRATE IV ; Start 08/01/16 at 16:30 VLAD LAIRD August 01, 2016 17:05
[2016-08-01] MEDS: DOBUTamine/D5W 1 MG/ML DRIP 250 ML IV SCH (17:19)
--- NOTE | 2016-08-01 18:16 | CONS ---
DATE OF ADMISSION: 07/31/2016 DATE OF CONSULTATION: 08/01/2016 TYPE OF CONSULTATION: Pulmonary. PRIMARY PHYSICIAN: Dr. Plaza REASON FOR CONSULTATION: Respiratory failure and vent dependence. HISTORY OF PRESENT ILLNESS: Briefly, this is a 65-year-old female who lives alone with a history of hypertension, hypothyroidism, depression who per her friend who was present at bedside, states that she has had a 5 to 6-week history of progressive anorexia with nausea and vomiting and diarrhea and has had limited her p.o. intake during the past 5 to 6 weeks. More recently, the patient had becom e more confused and had declined seeking further medical care per the urging of her friend. Last ni ght, she presented to the emergency room with increasing generalized weakness as well as shallow andrade athing pattern and was intubated by the emergency room and placed on mechanical ventilation. Initia l findings were notable by chest x-ray consistent with mostly congestive heart failure but may be an element of coexisting bibasilar infiltrates present. Thereby, she was treated for possible pneumon ia and was transferred to the ICU. PAST MEDICAL HISTORY: As above. MEDICATIONS: She was on: 1. Enalapril 2. Hydrochlorothiazide. 3. Levothyroxine. 4. Sertraline. PAST SURGICAL HISTORY: Unknown. SOCIAL HISTORY: No known tobacco, alcohol or illicit drug use. ALLERGIES: PROPOXYPHENE. FAMILY HISTORY: Unable to obtain. REVIEW OF SYSTEMS: Unable to obtain. PHYSICAL EXAMINATION: GENERAL: Sedated, on Versed, intubated, in no acute distress. VITAL SIGNS: Blood pressure is 88, heart rate is 102/74, oxygen saturation 100% on 50% FIO2. HEENT: ET tube is in place. NECK: Supple, no thyromegaly, no jugular venous distention. CARDIOVASCULAR: Regular rate and rhythm, S1 and S2. A II/ systolic murmur heard best at the apex . CHEST: There are bibasilar crackles. ABDOMEN: Soft, nontender. EXTREMITIES: There is no cyanosis, clubbing or edema. LABORATORY DATA: UA is positive for nitrites as well as a 5 to 10 RBCs ABG: pH of 7.46, pCO2 is 27 , pO2 is 95. Chemistry: K is 3.0, BUN is 23, creatinine is 1.17. Albumin is 2.6, troponin is 0.20, ALT is 72. Coags are within normal limits. WBC is 14.5, hemoglobin is 12.1. Chest x-ray shows pulmonary venous congestion and evidence of pulmonary edema as well as may be more dense bibasilar airspace opacities, thereby cannot rule out coexisting pneumonia. IMPRESSION: 1. Acute hypoxemic respiratory failure, likely due to a pneumonia as well as possible coexisting he art failure. 2. Progressive anorexia, weakness and failure to thrive. This certainly is concerning for an under lying metabolic process, i.e., profound hypothyroidism versus underlying adrenal insufficiency. 3. Sepsis, possibly due to an aspiration pneumonia. 4. Lactic acidosis due to above. 5. Congestive heart failure. 6. Elevated troponin, likely due to demand ischemia. RECOMMENDATIONS: 1. Ventilatory support with ventilator changes as ordered. 2. Extensive serological workup including B12, TSH, RPR, cortisol level. 3. Broaden antibiotic coverage to cover for community-acquired as well as aspiration pneumonia. 4. Follow up cultures. 5. Sedation to be changed to fentanyl and propofol with discontinuation of Versed. 6. Initiate Synthroid IV. 7. Echo to be obtained to evaluate LV function. 8. Will need to assess mental status and consider an LP if there is no improvement. 9. Deep vein thrombosis and GI prophylaxis. Dictated By: CISCO KING MD NK/NTS Conf#: [id number] DID#: [id number] CC: LUIS ARMANDO PLAZA MD; CONY PELAEZ MD;*End*
[2016-08-02] VITALS (93 sets, daily range): BP systolic 73–118; BP diastolic 48–90; PULSE 88–111; RESP 13–32
[2016-08-02] MEDS ORDERED: NORepinephrine 8MG/250 ML (PMX 250 ML ONE (01:44)
[2016-08-02] MEDS: FENTAnyl (DRIP) 1000 mcg/100mL 100 ML IV SCH (04:25)
[2016-08-02 05:26] LABS: AADO2 Arterial 136.1 mmHg (7.0-24.0); Allen Test ACCEPTAB; Arterial Base Excess -2.6 mmol/L (-3.0-3); Arterial COHb 0.9 % (0.0-3.0); Arterial Fraction of Oxyhgb 96.1 % (93.0-99.0); Arterial HCO3 23.1 mmol/L (22.0-26.0); Arterial MetHb 0.3 % (0.0-1.5); Arterial Total Hemglobin 13.2 g/dl (12.0-18.0); MODE VENT - AC
[2016-08-02 06:01] LABS: ADD SCAN DIFF NO
[2016-08-02 06:03] LABS: BASOPHILS % 0.2 % (0.0-2.0); EOSINOPHILS # 0.1 10^3/ul (0.0-0.5); EOSINOPHILS % 0.3 % (0.0-7.0); HEMATOCRIT 39.3 % (37.0-47.0); HEMOGLOBIN 12.1 g/dl (12.0-16.0); LYMPHOCYTES # 1.3 10^3/ul (0.8-2.9); MEAN CORPUSCULAR HEMOGLOBIN 31.5 pg (29.0-33.0); MEAN CORPUSCULAR HGB CONC 30.8 g/dl (32.0-37.0); MEAN CORPUSCULAR VOLUME 102.3 fl (82.0-101.0); MONOCYTES % 5.4 % (0.0-11.0); NEUTROPHIL # 16.6 10^3/ul (1.6-7.5); NEUTROPHILS % 85.9 % (39.0-77.0); NUCLEATED RED BLOOD CELLS% 0.2 /100WBC (0.0-0.0); PLATELET COUNT 152 10^3/UL (140-415); RED BLOOD COUNT 3.84 10^6/ul (4.20-5.40); RED CELL DISTRIBUTION WIDTH 17.1 % (11.5-14.5); WHITE BLOOD COUNT 19.3 10^3/ul (4.8-10.8)
[2016-08-02 06:44] LABS: ALBUMIN 2.5 g/dl (3.3-4.9); POTASSIUM 3.7 mmol/L (3.5-5.1)
[2016-08-02 06:46] LABS: CREATININE 1.4 mg/dl (0.44-1.00)
[2016-08-02 06:47] LABS: ALBUMIN/GLOBULIN RATIO 0.89; BILIRUBIN,INDIRECT 0.5 mg/dl (0-1.1); BILIRUBIN,TOTAL 0.5 mg/dl (0.2-1.3); TOTAL PROTEIN 5.3 g/dl (6.1-8.1)
[2016-08-02 06:48] LABS: CALCIUM 8.2 mg/dl (8.4-10.2); MAGNESIUM 1.6 mg/dl (1.7-2.5); PHOSPHORUS 3.8 mg/dl (2.5-4.9)
[2016-08-02] MEDS: DEXTROSE 5%-0.45% NACL 1,000 ML IV SCH (07:00)
[2016-08-02] MEDS ORDERED: MAGNESIUM SULFATE 2 GM/50 ML 50 ML IVPB ONE ×3 (07:30→09:00)
[2016-08-02] MEDS: POTASSIUM CHLORIDE 50 ML IVPB PRN (07:46)
--- NOTE | 2016-08-02 08:12 | RADRPT ---
PROCEDURE: XR Chest. CLINICAL INDICATION: Shortness of breath. TECHNIQUE: Single frontal view. COMPARISON: 08/01/2016. FINDINGS: The endotracheal tube, nasogastric tube, and right subclavian vein catheter remain in satisfactory p osition. There is patchy bilateral pulmonary air space disease, unchanged. The heart is enlarged. There is no pleural effusion. There is no pneumothorax. IMPRESSION: 1. No change from 08/01/2016. RPTAT: QQ .Harlan Ray MD, MD Date Time Electronically viewed and signed by .Harlan Ray MD, MD on 08/02/2016 08:11 .R/
[2016-08-02] MEDS: ALBUMIN HUMAN 25% 100 ML IV SCH ×3 (08:31→23:58)
--- NOTE | 2016-08-02 08:50 | RADRPT ---
PROCEDURE: Retroperitoneal US. CLINICAL INDICATION: Renal insufficiency TECHNIQUE: Multiple sonographic images of the kidneys and retroperitoneum were obtained. The imag es were reviewed on a PACS workstation. COMPARISON: No prior studies are available for comparison. FINDINGS: The kidneys are normal in size, contour, cortical thickness and cortical echogenicity. The right kidney measures 11.2 cm. The left kidney measures 10.0 cm. No kidney stones are visualized. There is no evidence for hydronephrosis. The urinary bladder is not visualized. RPTAT: AA IMPRESSION: Unremarkable retroperitoneal ultrasound. .Domenic Hopkins MD, Date Time Electronically viewed and signed by .Domenic Hopkins MD, on 08/02/2016 08:49 .S/
--- NOTE | 2016-08-02 09:12 | PN ---
Date/Time of Note Date/Time of Note DATE: 08/02/16 TIME: 08:56 Assessment/Plan VTE Prophylaxis VTE Prophylaxis Intervention: heparin Lines/Catheters IV Catheter Type (from [facility]): Saline Lock Urinary Cath still in place: Yes Reason Cath still needed: other (indicate) Assessment/Plan Assessment/Plan 1. Acute hypoxic respiratory failure remains ventilator dependent * Continue vent support / pulmonology consult appreciated 2. Shock secondary to severe heart failure versus sepsis from pneumonia * Continue pressor support with Levophed and now dobutamine / Follow-up on 2D echo / Cardiology consult / Diuretics held secondary to hypotension 3. Bilateral pneumonia * continue cefepime and azithromycin 4. Nitrite positive UTI 5. Acute kidney injury with CKD with oliguria secondary to shock and/or cardiorenal syndrome 6. Congestive heart failure exacerbation 7. Non-STEMI likely type II from shock 8. Hypertension > Hypotension (shock) 9. Poorly controlled hypothyroidism. 10. Chronic depression * According to patient's friends she has been not taking her medications, has not been acting the same and has not been attending her usual activities for the past several weeks * Cannot rule out underlying neurological event as well 11. Hypomagnesemia: replace DISPO: Continue ICU support/vent management and weaning/IV antibiotics. Await cardiology review and recommendations /wean pressors as tolerated Appreciate all consults. Critical care time: > 35 minutes Prophylaxis: Heparin Subjective 24 Hr Interval Summary Free Text/Dictation * Cloudy urine with reduced urine output * Remains intubated and on pressor support. Subjective hx not possible: pt non-verbal, pt critical status Exam/Review of Systems Vital Signs Vitals Vital Signs Date Time Temp Pulse Resp B/P Pulse Ox O2 Delivery O2 Flow Rate FiO2 08/02/16 07:00 101 18 101/53 98 Mechanical Ventilator 08/02/16 05:42 40 08/02/16 04:00 98.2 07/31/16 21:02 4.0 Intake and Output 08/01/16 08/01/16 08/02/16 15:00 23:00 07:00 Intake Total 1083.78 ml 797.760 ml 328.440 ml Output Total 250 ml 100 ml 50 ml Balance 833.78 ml 697.760 ml 278.440 ml Exam Constitutional: non-verbal ENMT: intubated, male facial hair distribution Respiratory: clear to auscultation Cardiovascular: regular rate and rhythm Gastrointestinal: soft, No distended Musculoskeletal: nl extremities to inspection, with mild pitting edema in both feet Results Result Diagram: 08/02/16 0548 08/02/16 0548 Results 24 hrs Laboratory Tests Test 08/01/16 12:42 08/01/16 13:30 08/01/16 23:16 08/02/16 05:00 Potassium Level 3.7 Creatine Kinase 57 Vitamin B12 Level 796 Thyroid Stimulating Hormone (TSH) 12.800 H Random Cortisol 28.7 Troponin I 0.125 *H Blood Gas Specimen Source Blood arterial Arterial Blood Date Drawn 08/02/2016 5:20:33 AM Arterial Blood pH (Temp corrected) 7.345 L Arterial Blood pCO2 (Temp correct) 43.3 Arterial Blood pO2 (Temp corrected) 99.3 Arterial Blood HCO3 23.1 Arterial Blood Base Excess -2.6 Arterial Blood Oxygen Saturation 97.3 Clarence Test ACCEPTAB Arterial Blood Gas Puncture Site Right Radial Arterial Blood Carboxyhemoglobin 0.9 Arterial Blood Methemoglobin 0.3 Blood Gas A-a O2 Differential 136.1 H Oxyhemoglobin Percent 96.1 Total Hemoglobin 13.2 Blood Gas Temperature 37.0 Blood Gas Respiration Rate 14.0 Blood Gas Actual Respiration Rate 16 Blood Gas Modality VENT - AC FiO2 40.0 Blood Gas Tidal Volume 400.0 Blood Gas Low PEEP Setting 5.0 Blood Gas Inspiratory Pressure 26.0 Blood Gas Notified Whom BR Blood Gas Notified Time 08/02/2016 5:26:19 AM Test 08/02/16 05:48 White Blood Count 19.3 #H Red Blood Count 3.84 L Hemoglobin 12.1 Hematocrit 39.3 Mean Corpuscular Volume 102.3 H Mean Corpuscular Hemoglobin 31.5 Mean Corpuscular Hemoglobin Concent 30.8 L Red Cell Distribution Width 17.1 H Platelet Count 152 Mean Platelet Volume 12.0 H Neutrophils % 85.9 H Lymphocytes % 7.0 L Monocytes % 5.4 Eosinophils % 0.3 Basophils % 0.2 Nucleated Red Blood Cells % 0.2 H Neutrophils # 16.6 H Lymphocytes # 1.3 Monocytes # 1.0 H Eosinophils # 0.1 Basophils # 0.0 Nucleated Red Blood Cells # 0.0 Erythrocyte Sedimentation Rate 30 Sodium Level 143 Potassium Level 3.7 Chloride Level 108 Carbon Dioxide Level 26 Anion Gap 13 Blood Urea Nitrogen 24 H Creatinine 1.40 H Glucose Level 153 Lactic Acid Level 2.1 Calcium Level 8.2 L Phosphorus Level 3.8 Magnesium Level 1.6 L Total Bilirubin 0.5 Direct Bilirubin 0.00 Indirect Bilirubin 0.5 Aspartate Amino Transf (AST/SGOT) 28 Alanine Aminotransferase (ALT/SGPT) 62 Alkaline Phosphatase 89 Total Protein 5.3 L Albumin 2.5 L Globulin 2.80 Albumin/Globulin Ratio 0.89 Medications Medications Current Medications Dextrose/Sodium Chloride (D5-1/2ns) 1,000 ml @ 25 mls/hr Q24H IV Last administered on 08/01/16 11:07; Admin Dose 100 MLS/HR; Start 07/31/16 at 23:04 Ondansetron HCl (Zofran Inj) 4 mg Q6H PRN IV NAUSEA AND/OR VOMITING; Start at 23:30 Acetaminophen (Tylenol Liquid) 650 mg Q6H PRN PO PAIN LEVEL 1-3 OR FEVER; Start 07/31/16 at 23:30 Lorazepam (Ativan) 1 mg Q2H PRN IV ANXIETY; Start 07/31/16 at 23:30 Famotidine (Pepcid Iv) 20 mg DAILY IV Last administered on 08/01/16 09:17; Admin Dose 20 MG; Start 08/01/16 at 09:00 Heparin Sodium (Porcine) 5000 unit 5,000 unit Q12 SC Last administered on 21:18; Admin Dose 5,000 UNIT; Start 08/01/16 at 09:00 Cefepime HCl 50 ml @ 100 mls/hr Q12 IVPB Last administered on 08/01/16 21:11 ; Admin Dose 100 MLS/HR; Start 08/01/16 at 09:00 Norepinephrine 16 mg/Dextrose 500 ml @ 1.87 mls/hr TITRATE IV Last administered on 08/02/16 02:03; Admin Dose 1.87 MLS/HR; Start 08/01/16 at 03:30 Azithromycin 250 ml @ 250 mls/hr Q24H IVPB Last administered on 08/01/16 14: 21; Admin Dose 250 MLS/HR; Start 08/01/16 at 13:30 Fentanyl 100 ml @ 5 mls/hr TITRATE IV Last administered on 08/02/16 04:25; Admin Dose 5 MLS/HR; Start 08/01/16 at 13:30 Propofol (Diprivan) 100 ml @ 2.343 mls/ hr Q12H IV Last administered on 13:46; Admin Dose 2.343 MLS/HR; Start 08/01/16 at 13:30 Levothyroxine Sodium (Synthroid Iv) 75 mcg DAILY IV Last administered on 14:21; Admin Dose 75 MCG; Start 08/01/16 at 13:30 Sertraline HCl 50 mg 50 mg DAILY NGT Last administered on 08/01/16 14:21; Admin Dose 50 MG; Start 08/01/16 at 13:30 Dobutamine HCl/ Dextrose 250 ml @ 11.715 mls/ hr TITRATE IV Last administered on 08/01/16 17:19; Admin Dose 11.715 MLS/HR; Start 08/01/16 at 16:30 Magnesium Sulfate 50 ml @ 25 mls/hr ONCE ONCE IVPB Last administered on 08:32; Admin Dose 25 MLS/HR; Start 08/02/16 at 08:00; Stop 08/02/16 at 09: 59 Albumin Human (Albumin Human 25%) 100 ml @ 100 mls/hr Q8H IV Last administered on 08/02/16 08:31; Admin Dose 100 MLS/HR; Start 08/02/16 at 08:00 ; Stop 08/03/16 at 00:59 Procedures Procedures PROCEDURE: Retroperitoneal US. CLINICAL INDICATION: Renal insufficiency TECHNIQUE: Multiple sonographic images of the kidneys and retroperitoneum were obtained. The images were reviewed on a PACS workstation. COMPARISON: No prior studies are available for comparison. FINDINGS: The kidneys are normal in size, contour, cortical thickness and cortical echogenicity. The right kidney measures 11.2 cm. The left kidney measures 10.0 cm. No kidney stones are visualized. There is no evidence for hydronephrosis. The urinary bladder is not visualized. RPTAT: AA IMPRESSION: Unremarkable retroperitoneal ultrasound. .Domenic Hopkins MD, Date Time Electronically viewed and signed by .Domenic Hopkins MD, on 08/02/2016 08: 49 PROCEDURE: XR Chest. CLINICAL INDICATION: Shortness of breath. TECHNIQUE: Single frontal view. COMPARISON: 08/01/2016. FINDINGS: The endotracheal tube, nasogastric tube, and right subclavian vein catheter remain in satisfactory position. There is patchy bilateral pulmonary air space disease, unchanged. The heart is enlarged. There is no pleural effusion. There is no pneumothorax. IMPRESSION: 1. No change from 08/01/2016. RPTAT: QQ .Harlan Ray MD, MD Date Time Electronically viewed and signed by .Harlan Ray MD, MD on 08/02/2016 08:11 .R/ CC: CISCO KING MD RENATA BEAN August 02, 2016 09:07
--- NOTE | 2016-08-02 09:13 | CONS ---
DATE OF ADMISSION: 07/31/2016 DATE OF CONSULTATION: NEPHROLOGY CONSULTATION REASON FOR CONSULTATION: Acute kidney injury. PHYSICIAN REQUESTING CONSULT: Dr. Salinas HISTORY OF PRESENT ILLNESS: This is a 65-year-old female with a past medical history of hypertensio n, history of hypothyroidism, history of depression who was brought into [facility] with shortness of breath, lethargy, and weakness. The patient's history is obtained by reviewing medical records, speaking to hospital staff, as the patient is currently intubated. The patient asia arently has had a several-week history of progressive anorexia, nausea, vomiting, diarrhea, decrease d oral intake. The patient has also not been taking her medications during this period of time. Th e patient was recently found by her friend to be more confused and lethargic. As a result, she came to the emergency room for evaluation. Upon arrival, the patient had chest x-ray findings which wer e suggestive of possible CHF and/or pneumonia. The patient in the emergency room was treated with I V antibiotics and subsequently decompensated and required intubation and was noted to be in shock, p laced on pressor support, and transferred to the intensive care unit. While in intensive care unit, the patient has been on full ventilatory care. The patient has been placed on dobutamine for the c oncern of possible cardiogenic shock. There have been no reports of hemoptysis, hematemesis, or hem atochezia. In terms of the patient's renal history, on admission, the patient noted to have a creatinine of 1.2 8 mg/dL which has increased to 1.4 mg/dL in the last 48 hours. During this time, the patient has be en in shock with systolic pressures as low as in the 80s. The patient has been given IV hydration h as been urinating only 25 to 30 mL per hour. There have been no reports of rash and no frothy urine . No gross hematuria noted. PAST MEDICAL HISTORY: As stated above, history of hypertension, history of hypothyroidism, history of depression. PAST SURGICAL HISTORY: Unknown. SOCIAL HISTORY: Does not drink, smoke, or do drugs. ALLERGIES: REVIEWED, PLEASE SEE LIST. FAMILY HISTORY: No family history of kidney disease or heart disease. MEDICATIONS: The patient's medications have been reviewed. REVIEW OF SYSTEMS: Unable to do adequate review of systems as the patient is obtunded. Pertinent p ositives obtained by reviewing medical records, speaking to hospital staff, stated in HPI, otherwise negative. PHYSICAL EXAMINATION: VITAL SIGNS: Blood pressure is 96/65, respirations are 13, pulse 102, temperature 98.6. I'S AND O'S: The patient had 2 liters in with 500 out. HEENT: Head is normocephalic. Pupils are reactive to light. NECK: Supple. HEART: Regular rate. LUNGS: Show diminished breath sounds at the base. Positive rhonchi and crackles. ABDOMEN: Soft, nontender to palpation without rebound or guarding. EXTREMITIES: Negative for clubbing, cyanosis. Trace edema. DERMATOLOGIC: No rashes. MUSCULOSKELETAL: No joint effusions. NEUROLOGIC: Limited exam as the patient is obtunded. LABORATORY DATA: Shows a sodium 143, potassium 3.7, chloride 108, BUN 24, creatinine 1.40, calcium 8.2, magnesium 1.6, troponin 0.125. TSH 12. White count 19.3, hemoglobin 12.1, hematocrit of 39.3. Urinalysis shows 5 to 10 RBCs, 0 to 2 WBCs, positive squamous epithelial cells, +1 protein. IMAGING STUDIES: Chest x-ray was reviewed, showed dense patchy airspace disease, questionable nodul es and/or mass. Cultures have been reviewed. ASSESSMENT AND PLAN: This is a 65-year-old female who presents with: 1. Oliguric acute kidney injury with unknown baseline creatinine. Etiology of acute kidney injury is likely secondary to acute tubular necrosis due to ischemic hypoperfusion, shock, septic acute kid vee injury. The patient's initial urinalysis shows 5 to 10 RBCs and +1 proteinuria and positive nit rite test. No significant pyuria. Given the patient's clinical presentation, low suspicion for acu te glomerulonephritis, vasculitis, or interstitial nephritis at this time. Plan is to do a full hussain luation by checking a renal ultrasound. Will repeat a UA and evaluate the urine under microscopy to see if there is evidence of tubular casts or muddy brown casts suggestive of tubular injury. We wi ll also check urine electrolytes. Would continue current treatment plan with IV antibiotics and pre ssor support to maintain MAP of 65. We will also give the patient a gentle fluid challenge with alb umin. Will otherwise continue supportive care, renally dose meds, avoid nephrotoxins. 2. Shock, etiology is unclear, possibly cardiogenic, septic, multifactorial. The patient is curren tly on inotropic support, pressor support, and is receiving broad-spectrum antibiotics. Recommendat ion at this point was to get a 2-D echo to evaluate the patient's ejection fraction and to evaluate IVC compressibility. Would otherwise continue current treatment plan. Continue gentle volume expan alfonso. 3. Hypomagnesemia, replete magnesium sulfate. 4. Mineral bone disorder. Monitor calcium and phosphorus levels. No need for phosphate binders. 5. History of hypertension. The patient is currently hypotensive, in shock as stated above. Matt nue to monitor. 6. Ventilator-dependent respiratory failure. Vent settings have been reviewed. ABG is reviewed. Continue to monitor. 7. Elevated troponin, possible [id number] myocardial infarction type 2. Continue current med ical management. Checked serial troponins. 8. Hypothyroidism. Continue Synthroid. 9. History of depression. 10. Gastrointestinal and deep venous thrombosis prophylaxis. Thank you, Dr. Salinas, for this interesting consultation. It will be a pleasure to follow patient with you throughout the hospital course. Dictated By: LACEY ROSAS/DAISY Conf#: [id number] DID#: [id number]
[2016-08-02] MEDS: FAMOTIDINE 20 MG INJ IV SCH (09:26)
[2016-08-02] MEDS: CEFEPIME 1GM/50 ML (PMX) 50 ML IVPB SCH ×2 (09:26→21:37)
[2016-08-02] MEDS: LEVOTHYROXINE 100 MCG VIAL IV SCH (09:26)
[2016-08-02] MEDS: HEPARIN 5,000 UNIT/0.5 ML VIAL SC SCH ×2 (09:27→21:44)
--- NOTE | 2016-08-02 09:57 | CONS ---
Date/Time of Note Date/Time of Note DATE: 08/02/16 TIME: 09:52 Assessment/Plan Assessment/Plan Additional Assessment/Plan Chest x-ray was reviewed from today which is showing diffuse bilateral it without infiltrates on addition of pneumonia and congestive heart failure. Endotracheal tube is at an adequate level. Current ventilator settings; AC of 14, tidal volume 400, PEEP of 5, 40% FiO2. Next Patient currently on propofol at 12 mics per kilogram per minute, Levophed 20 mics per minute, dobutamine 2.5 mics per kilogram per minute. Fentanyl drip at 50 mics per hour. Assessment recommendations; 1. Patient admitted with respiratory failure due to pneumonia and underlying cardiomyopathy with congestive heart failure. 2. Worsening leukocytosis as well as worsening bilateral infiltrates. 3. Severe hypothyroidism. 4. Severe hypotension, requiring high-dose pressor support. 5. Decreasing urine output. Continue current supportive care. Patient currently not in a position to be weaned off from ventilator. A nephrology consult is pending. Add vancomycin to be dosed by the pharmacy. Prognosis remains very guarded. Next 35 minutes of critical care time was spent evaluating the patient. Consultation Date/Type/Reason Admit Date/Time July 31, 2016 at 22:25 Initial Consult Date Type of Consultation: Pulmonary/critical care 24 HR Interval Summary Free Text/Dictation Patient's condition remains critical. Remains sedated. Remains hypotensive requiring high-dose pressor support. General exam; elderly lady, orally intubated, sedated. Currently in no distress. Exam/Review of Systems Vital Signs Vitals Vital Signs Date Time Temp Pulse Resp B/P Pulse Ox O2 Delivery O2 Flow Rate FiO2 08/02/16 09:03 107 14 100 40 08/02/16 07:00 101/53 Mechanical Ventilator 08/02/16 04:00 98.2 07/31/16 21:02 4.0 Intake and Output 08/01/16 08/01/16 08/02/16 15:00 23:00 07:00 Intake Total 1083.78 ml 797.760 ml 328.440 ml Output Total 250 ml 100 ml 50 ml Balance 833.78 ml 697.760 ml 278.440 ml Exam HEENT exam is; supple neck, positive JVD. No lymphadenopathy. Midline trachea. No thyromegaly. Orally intubated. Patient has fair dentition. Pupils are equal and reactive to light bilaterally. Next Chest examination; bilateral crackles. S1-S2 audible, no murmurs. Regular rhythm. Abdomen examination; soft, non-distended. No organomegaly. Bowel sounds are audible. Extremity examination; no peripheral edema. PROGRAM SPECIALIST examination; patient is sedated. Results Result Diagram: 08/02/16 0548 08/02/16 0548 Results 24 hrs Laboratory Tests Test 08/01/16 12:42 08/01/16 13:30 08/01/16 23:16 08/02/16 05:00 Potassium Level 3.7 Creatine Kinase 57 Vitamin B12 Level 796 Thyroid Stimulating Hormone (TSH) 12.800 H Random Cortisol 28.7 Troponin I 0.125 *H Blood Gas Specimen Source Blood arterial Arterial Blood Date Drawn 08/02/2016 5:20:33 AM Arterial Blood pH (Temp corrected) 7.345 L Arterial Blood pCO2 (Temp correct) 43.3 Arterial Blood pO2 (Temp corrected) 99.3 Arterial Blood HCO3 23.1 Arterial Blood Base Excess -2.6 Arterial Blood Oxygen Saturation 97.3 Clarence Test ACCEPTAB Arterial Blood Gas Puncture Site Right Radial Arterial Blood Carboxyhemoglobin 0.9 Arterial Blood Methemoglobin 0.3 Blood Gas A-a O2 Differential 136.1 H Oxyhemoglobin Percent 96.1 Total Hemoglobin 13.2 Blood Gas Temperature 37.0 Blood Gas Respiration Rate 14.0 Blood Gas Actual Respiration Rate 16 Blood Gas Modality VENT - AC FiO2 40.0 Blood Gas Tidal Volume 400.0 Blood Gas Low PEEP Setting 5.0 Blood Gas Inspiratory Pressure 26.0 Blood Gas Notified Whom BR Blood Gas Notified Time 08/02/2016 5:26:19 AM Test 08/02/16 05:48 White Blood Count 19.3 #H Red Blood Count 3.84 L Hemoglobin 12.1 Hematocrit 39.3 Mean Corpuscular Volume 102.3 H Mean Corpuscular Hemoglobin 31.5 Mean Corpuscular Hemoglobin Concent 30.8 L Red Cell Distribution Width 17.1 H Platelet Count 152 Mean Platelet Volume 12.0 H Neutrophils % 85.9 H Lymphocytes % 7.0 L Monocytes % 5.4 Eosinophils % 0.3 Basophils % 0.2 Nucleated Red Blood Cells % 0.2 H Neutrophils # 16.6 H Lymphocytes # 1.3 Monocytes # 1.0 H Eosinophils # 0.1 Basophils # 0.0 Nucleated Red Blood Cells # 0.0 Erythrocyte Sedimentation Rate 30 Sodium Level 143 Potassium Level 3.7 Chloride Level 108 Carbon Dioxide Level 26 Anion Gap 13 Blood Urea Nitrogen 24 H Creatinine 1.40 H Glucose Level 153 Lactic Acid Level 2.1 Calcium Level 8.2 L Phosphorus Level 3.8 Magnesium Level 1.6 L Total Bilirubin 0.5 Direct Bilirubin 0.00 Indirect Bilirubin 0.5 Aspartate Amino Transf (AST/SGOT) 28 Alanine Aminotransferase (ALT/SGPT) 62 Alkaline Phosphatase 89 Total Protein 5.3 L Albumin 2.5 L Globulin 2.80 Albumin/Globulin Ratio 0.89 Medications Medications Current Medications Dextrose/Sodium Chloride (D5-1/2ns) 1,000 ml @ 25 mls/hr Q24H IV Last administered on 08/01/16 11:07; Admin Dose 100 MLS/HR; Start 07/31/16 at 23:04 Ondansetron HCl (Zofran Inj) 4 mg Q6H PRN IV NAUSEA AND/OR VOMITING; Start at 23:30 Acetaminophen (Tylenol Liquid) 650 mg Q6H PRN PO PAIN LEVEL 1-3 OR FEVER; Start 07/31/16 at 23:30 Lorazepam (Ativan) 1 mg Q2H PRN IV ANXIETY; Start 07/31/16 at 23:30 Famotidine (Pepcid Iv) 20 mg DAILY IV Last administered on 08/02/16 09:26; Admin Dose 20 MG; Start 08/01/16 at 09:00 Heparin Sodium (Porcine) 5000 unit 5,000 unit Q12 SC Last administered on 09:27; Admin Dose 5,000 UNIT; Start 08/01/16 at 09:00 Cefepime HCl 50 ml @ 100 mls/hr Q12 IVPB Last administered on 08/02/16 09:26 ; Admin Dose 100 MLS/HR; Start 08/01/16 at 09:00 Norepinephrine 16 mg/Dextrose 500 ml @ 1.87 mls/hr TITRATE IV Last administered on 08/02/16 02:03; Admin Dose 1.87 MLS/HR; Start 08/01/16 at 03:30 Azithromycin 250 ml @ 250 mls/hr Q24H IVPB Last administered on 08/01/16 14: 21; Admin Dose 250 MLS/HR; Start 08/01/16 at 13:30 Fentanyl 100 ml @ 5 mls/hr TITRATE IV Last administered on 08/02/16 04:25; Admin Dose 5 MLS/HR; Start 08/01/16 at 13:30 Propofol (Diprivan) 100 ml @ 2.343 mls/ hr Q12H IV Last administered on 13:46; Admin Dose 2.343 MLS/HR; Start 08/01/16 at 13:30 Levothyroxine Sodium (Synthroid Iv) 75 mcg DAILY IV Last administered on 09:26; Admin Dose 75 MCG; Start 08/01/16 at 13:30 Sertraline HCl 50 mg 50 mg DAILY NGT Last administered on 08/01/16 14:21; Admin Dose 50 MG; Start 08/01/16 at 13:30; Status Future Hold Dobutamine HCl/ Dextrose 250 ml @ 11.715 mls/ hr TITRATE IV Last administered on 08/01/16 17:19; Admin Dose 11.715 MLS/HR; Start 08/01/16 at 16:30 Magnesium Sulfate 50 ml @ 25 mls/hr ONCE ONCE IVPB Last administered on 08:32; Admin Dose 25 MLS/HR; Start 08/02/16 at 08:00; Stop 08/02/16 at 09: 59 Albumin Human (Albumin Human 25%) 100 ml @ 100 mls/hr Q8H IV Last administered on 08/02/16 08:31; Admin Dose 100 MLS/HR; Start 08/02/16 at 08:00 ; Stop 08/03/16 at 00:59 JORGE CHU August 02, 2016 09:57
[2016-08-02] MEDS ORDERED: VANCOMYCIN IV PER PHARMACY XX SCH (10:00)
[2016-08-02 10:37] LABS: CK-MB 1.68 ng/ml (0.0-2.4)
[2016-08-02 10:40] LABS: TROPONIN-I 0.098 ng/ml (0.00-0.12)
[2016-08-02] MEDS ORDERED: VANCOMYCIN 2 GM in SOD CHLORIDE 0.9% 500 ML IVPB SCH (12:00)
[2016-08-02 14:09] LABS: ADD UMIC YES; URINE BILIRUBIN (Dip) 2+ (NEGATIVE); URINE BLOOD (Dip) 3+ (NEGATIVE); URINE COLOR AMBER (YELLOW); URINE GLUCOSE (Dip) NEGATIVE (NEGATIVE); URINE KETONES (Dip) NEGATIVE (NEGATIVE); URINE LEUKOCYTE ESTERASE (Dip) NEGATIVE (NEGATIVE); URINE NITRITE (Dip) POSITIVE (NEGATIVE); URINE TOTAL PROTEIN (Dip) 2+ (NEGATIVE); URINE UROBILINOGEN (Dip) 1.0 E.U./dL (0.1-1.0)
[2016-08-02 14:22] LABS: BACTERIA,URINE MANY; ICTOTEST NEGATIVE (NEGATIVE); SQUAMOUS EPITHELIAL CELL,UR FEW; URINE RBCS >50 /HPF (0)
[2016-08-02] MEDS: PROPOFOL 100 ML IV SCH (14:53)
[2016-08-02] MEDS: DOBUTamine/D5W 1 MG/ML DRIP 250 ML IV SCH (14:56)
[2016-08-02] MEDS ORDERED: VANCOMYCIN 1.5 GM in SOD CHLORIDE 0.9% 250 ML IVPB SCH (15:30)
--- NOTE | 2016-08-02 16:02 | RADRPT ---
Echocardiogram Report Patient Name: SOHA GONZALEZ Gender: Female Date: 1950 Study Date: 02-Aug-2016 Social Group Worker: Chele Mullen RDCS Location: [facility] Ref. Physician: CISCO KING Quality: Adequate Procedures: Transthoracic echocardiogram with complete 2D, M-Mode, and doppler examination. Indications: Congestive Heart Failure. 2D/M Mode Doppler Measurement Value Normal Ranges Measurement Value Normal Ranges LVIDd 2D 5.4 3.5 - 5.6 cm AV Peak Joaquín 1.8 m/sec LVIDs 2D 4.6 2.1 - 4.1 cm AV Peak PG 13.0 mmHg FS 2D 15.6 % LVOT Peak Joaquín 0.8 m/sec LVPWd 2D 0.9 0.6 - 1.1 cm LVOT Peak PG 3.0 mmHg IVSd 2D 0.8 0.6 - 1.1 cm MV E Peak Joaquín 1.0 m/sec IVS/LVPW 2D 1.0 MV Decel Time 77 msec AoR Diam 2D 2.4 2.0 - 3.7 cm TR Peak Joaquín 3.7 m/sec LA/Ao 2D 2 0 - 1 TR Peak PG 54.0 mmHg EDV 2D 157.0 cm3 RVSP 69.0 mmHg ESV 2D 94.8 cm3 LA Dimen 2D 4.1 2.3 - 4.0 cm Findings Left Ventricle: Normal left ventricular cavity size. Normal left ventricular wall thickness. Severe global left ventricular systolic dysfunction. Ejection fraction is visually estimated at 2025 %. Abnormal Diastolic Function. Right Ventricle: Normal right ventricular size. Severe right ventricular hypokinesis. Left Atrium: There is mild enlargement of left atrium. Right Atrium: The right atrium is normal in size. Mitral Valve: Mitral valve leaflets appear mildly thickened. Mild to moderate mitral valve regurgitation. Aortic Valve: Normal appearance of the aortic valve. No significant aortic stenosis or insufficiency. Tricuspid Valve: Estimated peak PA systolic pressure 69 mmHg. There is moderate tricuspid regurgitation. Pulmonic Valve: Normal pulmonic valve appearance. There is mild pulmonic regurgitation. Pericardium: Trivial pericardial effusion. Pleural effusion seen. Aorta: Normal aortic root. IVC: Dilated inferior vena cava without respiratory collapse, however, patient on ventilator. Conclusions 1.The left ventricle is normal in size with severely reduced systolic function. There is global hypokinesis. 2.Estimated left ventricular ejection fraction of 20-25%. 3.The right ventricle is normal in size with severe hypokinesis. 4.Mild left atrial enlargement. 5.Pulmonary hypertension with estimated RVSP of 69 mmHg. Electronically Signed By: Stephen Mendez 02-Aug-2016 16:01:12 -0700 Patient Name: SOHA GONZALEZ Study Date: 02-Aug-2016 [id number]
--- NOTE | 2016-08-02 16:16 | CONS ---
Date/Time of Note Date/Time of Note DATE: 08/02/16 TIME: 16:02 Assessment/Plan Assessment/Plan Chief Complaint/Hosp Course Assessment: Shock - septic vs cardiogenic Acute on chronic systolic heart failure NSTEMI - likely type 2 Acute hypoxic respiratory failure - intubated and on mechanical ventilation Pneumonia and urinary tract infection - on antibiotics Acute kidney injury Hypothyroidism - TSH 12.8, thyroid replacement per primary team History of hypertension Recommendations: -echocardiogram shows LVEF 20-25%, mild LAE, RVSP 69 mmHg -continue Levophed and dobutamine drips, wean as tolerated -Lasix 40mg IV daily Problems: Consultation Date/Type/Reason Admit Date/Time July 31, 2016 at 22:25 Type of Consultation: Cardiology Reason for Consultation congestive heart failure Referring Provider: VLAD LAIRD of Present Illness The patient is a 65 year-old female who presented with shortness of breath and generalized weakness. She is currently intubated and unable to provide any history. Per the medical records, she has been experiencing decreased oral intake, nausea, vomiting, diarrhea, and confusion for several weeks. In the emergency department, she was intubated and placed on mechanical ventilation secondary to respiratory distress. She has also been placed on Levophed and dobutamine drips for hypotension. Unable to obtain review of systems, patient is intubated. Past Medical History Hypertension Hypothyroidism Depression Incomplete data Past Surgical History Unknown Family History Significant Family History: other (unknown) Social History Unknown Smoking Status: Unknown if ever smoked Exam/Review of Systems Vital Signs Vitals Vital Signs Date Time Temp Pulse Resp B/P Pulse Ox O2 Delivery O2 Flow Rate FiO2 08/02/16 15:00 100 14 98 40 08/02/16 14:00 103/65 Mechanical Ventilator 08/02/16 12:00 98.1 07/31/16 21:02 4.0 Intake and Output 08/01/16 08/01/16 08/02/16 14:59 22:59 06:59 Intake Total 1147.19 ml 809.795 ml 320.440 ml Output Total 310 ml 80 ml 80 ml Balance 837.19 ml 729.795 ml 240.440 ml Exam Constitutional: other (intubated), No alert Psych: No nl mood/affect Head: atraumatic, normocephalic Eyes: nl conjunctiva, nl lids ENMT: intubated, nl external ears & nose Neck: supple Respiratory: crackles/rales, diminished breath sounds Cardiovascular: regular rate and rhythm, systolic murmur Gastrointestinal: soft, No distended Musculoskeletal: nl extremities to inspection Extremities: edema, No clubbing, No cyanosis Neurological: No nl mental status, No nl speech Results Result Diagram: 08/02/16 0548 08/02/16 0548 Results 24 hrs Laboratory Tests Test 08/01/16 23:16 08/02/16 05:00 08/02/16 05:48 08/02/16 09:35 Troponin I 0.125 *H 0.098 Blood Gas Specimen Source Blood arterial Arterial Blood Date Drawn 08/02/2016 5:20:33 AM Arterial Blood pH (Temp corrected) 7.345 L Arterial Blood pCO2 (Temp correct) 43.3 Arterial Blood pO2 (Temp corrected) 99.3 Arterial Blood HCO3 23.1 Arterial Blood Base Excess -2.6 Arterial Blood Oxygen Saturation 97.3 Clarence Test ACCEPTAB Arterial Blood Gas Puncture Site Right Radial Arterial Blood Carboxyhemoglobin 0.9 Arterial Blood Methemoglobin 0.3 Blood Gas A-a O2 Differential 136.1 H Oxyhemoglobin Percent 96.1 Total Hemoglobin 13.2 Blood Gas Temperature 37.0 Blood Gas Respiration Rate 14.0 Blood Gas Actual Respiration Rate 16 Blood Gas Modality VENT - AC FiO2 40.0 Blood Gas Tidal Volume 400.0 Blood Gas Low PEEP Setting 5.0 Blood Gas Inspiratory Pressure 26.0 Blood Gas Notified Whom BR Blood Gas Notified Time 08/02/2016 5:26:19 AM White Blood Count 19.3 #H Red Blood Count 3.84 L Hemoglobin 12.1 Hematocrit 39.3 Mean Corpuscular Volume 102.3 H Mean Corpuscular Hemoglobin 31.5 Mean Corpuscular Hemoglobin Concent 30.8 L Red Cell Distribution Width 17.1 H Platelet Count 152 Mean Platelet Volume 12.0 H Neutrophils % 85.9 H Lymphocytes % 7.0 L Monocytes % 5.4 Eosinophils % 0.3 Basophils % 0.2 Nucleated Red Blood Cells % 0.2 H Neutrophils # 16.6 H Lymphocytes # 1.3 Monocytes # 1.0 H Eosinophils # 0.1 Basophils # 0.0 Nucleated Red Blood Cells # 0.0 Erythrocyte Sedimentation Rate 30 Sodium Level 143 Potassium Level 3.7 Chloride Level 108 Carbon Dioxide Level 26 Anion Gap 13 Blood Urea Nitrogen 24 H Creatinine 1.40 H Glucose Level 153 Lactic Acid Level 2.1 Calcium Level 8.2 L Phosphorus Level 3.8 Magnesium Level 1.6 L Total Bilirubin 0.5 Direct Bilirubin 0.00 Indirect Bilirubin 0.5 Aspartate Amino Transf (AST/SGOT) 28 Alanine Aminotransferase (ALT/SGPT) 62 Alkaline Phosphatase 89 Total Protein 5.3 L Albumin 2.5 L Globulin 2.80 Albumin/Globulin Ratio 0.89 Creatine Kinase 36 Creatine Kinase Index 4.7 Creatinine Kinase MB (Mass) 1.68 Test 08/02/16 09:40 Urine Color SIMEON Urine Clarity CLEAR Urine pH 5.5 Urine Specific [place] >=1.030 H Urine Ketones NEGATIVE Urine Nitrite POSITIVE H Urine Bilirubin 2+ H Urine Ictotest NEGATIVE Urine Urobilinogen 1.0 E.U./dL Urine Leukocyte Esterase NEGATIVE Urine Microscopic RBC >50 Urine Microscopic WBC 5-10 Urine Squamous Epithelial Cells FEW Urine Bacteria MANY Urine Hemoglobin 3+ H Urine Random Creatinine 322.71 H Urine Random Sodium 14 L Urine Glucose NEGATIVE Urine Total Protein 93.0 H Medications Medications Current Medications Dextrose/Sodium Chloride (D5-1/2ns) 1,000 ml @ 25 mls/hr Q24H IV Last administered on 08/01/16 11:07; Admin Dose 100 MLS/HR; Start 07/31/16 at 23:04 Ondansetron HCl (Zofran Inj) 4 mg Q6H PRN IV NAUSEA AND/OR VOMITING; Start at 23:30 Acetaminophen (Tylenol Liquid) 650 mg Q6H PRN PO PAIN LEVEL 1-3 OR FEVER; Start 07/31/16 at 23:30 Lorazepam (Ativan) 1 mg Q2H PRN IV ANXIETY; Start 07/31/16 at 23:30 Famotidine (Pepcid Iv) 20 mg DAILY IV Last administered on 08/02/16 09:26; Admin Dose 20 MG; Start 08/01/16 at 09:00 Heparin Sodium (Porcine) 5000 unit 5,000 unit Q12 SC Last administered on 09:27; Admin Dose 5,000 UNIT; Start 08/01/16 at 09:00 Cefepime HCl 50 ml @ 100 mls/hr Q12 IVPB Last administered on 08/02/16 09:26 ; Admin Dose 100 MLS/HR; Start 08/01/16 at 09:00 Azithromycin 250 ml @ 250 mls/hr Q24H IVPB Last administered on 08/01/16 14: 21; Admin Dose 250 MLS/HR; Start 08/01/16 at 13:30 Fentanyl 100 ml @ 5 mls/hr TITRATE IV Last administered on 08/02/16 04:25; Admin Dose 5 MLS/HR; Start 08/01/16 at 13:30 Propofol (Diprivan) 100 ml @ 2.343 mls/ hr Q12H IV Last administered on 14:53; Admin Dose 3.749 MLS/HR; Start 08/01/16 at 13:30 Levothyroxine Sodium (Synthroid Iv) 75 mcg DAILY IV Last administered on 09:26; Admin Dose 75 MCG; Start 08/01/16 at 13:30 Sertraline HCl 50 mg 50 mg DAILY NGT Last administered on 08/01/16 14:21; Admin Dose 50 MG; Start 08/01/16 at 13:30; Status Future Hold Dobutamine HCl/ Dextrose 250 ml @ 11.715 mls/ hr TITRATE IV Last administered on 08/02/16 14:56; Admin Dose 11.715 MLS/HR; Start 08/01/16 at 16:30 Albumin Human 100 ml @ 100 mls/hr Q8H IV Last administered on 08/02/16 08:31 ; Admin Dose 100 MLS/HR; Start 08/02/16 at 08:00; Stop 08/03/16 at 00:59 Vancomycin HCl 1.5 gm/Sodium Chloride 250 ml @ 83.333 mls/ hr ONCE IVPB ; Start 08/02/16 at 15:30; Stop 08/02/16 at 18:30 Vancomycin HCl 250 ml @ 125 mls/hr Q24H IVPB ; Start 08/03/16 at 16:00 Norepinephrine/ Dextrose (Levophed/D5W) 500 ml @ 1.87 mls/hr TITRATE IV ; Start 08/02/16 at 16:00 SHERYL WINTER MD August 02, 2016 16:13
[2016-08-02] MEDS: FUROSEMIDE 40 MG INJ IV SCH (16:49)
[2016-08-02] MEDS: AZITHROMYCIN 500MG/NS (PMX) 250 ML IVPB SCH (18:01)
[2016-08-03] VITALS (87 sets, daily range): BP systolic 79–125; BP diastolic 53–83; PULSE 85–116; RESP 12–36
[2016-08-03 06:01] LABS: ADD SCAN DIFF NO
[2016-08-03 06:08] LABS: BASOPHILS % 0.2 % (0.0-2.0); EOSINOPHILS # 0.2 10^3/ul (0.0-0.5); EOSINOPHILS % 1.5 % (0.0-7.0); HEMATOCRIT 32.6 % (37.0-47.0); LYMPHOCYTES # 1.6 10^3/ul (0.8-2.9); LYMPHOCYTES % 13.7 % (15.0-51.0); MEAN CORPUSCULAR HEMOGLOBIN 31.4 pg (29.0-33.0); MEAN CORPUSCULAR HGB CONC 30.7 g/dl (32.0-37.0); MEAN CORPUSCULAR VOLUME 102.5 fl (82.0-101.0); MEAN PLATELET VOLUME 12.4 fl (7.4-10.4); MONOCYTE # 0.6 10^3/ul (0.3-0.9); MONOCYTES % 5.3 % (0.0-11.0); NEUTROPHIL # 9.2 10^3/ul (1.6-7.5); NEUTROPHILS % 77.9 % (39.0-77.0); NUCLEATED RED BLOOD CELLS% 0.3 /100WBC (0.0-0.0); PLATELET COUNT 121 10^3/UL (140-415); RED BLOOD COUNT 3.18 10^6/ul (4.20-5.40); RED CELL DISTRIBUTION WIDTH 17.2 % (11.5-14.5); WHITE BLOOD COUNT 11.8 10^3/ul (4.8-10.8)
[2016-08-03 06:31] LABS: CREATININE 1.25 mg/dl (0.44-1.00)
[2016-08-03 06:32] LABS: CALCIUM 8.3 mg/dl (8.4-10.2); PHOSPHORUS 3.2 mg/dl (2.5-4.9)
[2016-08-03 06:56] LABS: POTASSIUM 2.9 mmol/L (3.5-5.1)
[2016-08-03] MEDS: DEXTROSE 5%-0.45% NACL 1,000 ML IV SCH (07:00)
[2016-08-03] MEDS: POTASSIUM CHLORIDE 50 ML IVPB PRN ×5 (07:12→18:22)
--- NOTE | 2016-08-03 08:30 | RADRPT ---
PROCEDURE: XR Chest. CLINICAL INDICATION: Rule out pneumonia. TECHNIQUE: Single frontal supine portable chest was obtained. COMPARISON: 08/02/2016. FINDINGS: Cardiac silhouette is enlarged and there is calcification in the thoracic aorta. Pulmonary vasculat ure appears prominent. There is mixed interstitial alveolar opacities bilaterally which appear slig htly worse in the prior study. There are tiny bilateral pleural effusions. Endotracheal tube, righ t PICC line and nasogastric tubes appear unchanged. IMPRESSION: 1. Slight interval worsening of mixed bilateral interstitial and alveolar infiltrates in the backgr ound of congestion suggesting congestive heart failure. 2. Tiny bilateral pleural effusions. 3. Aortic atherosclerosis. RPTAT: [facility] Physician Linus Date Time Electronically viewed and signed by Ilia Barton Physician on 08/03/2016 08:30 /
[2016-08-03 08:34] LABS: AADO2 Arterial 167.6 mmHg (7.0-24.0); Allen Test ACCEPTAB; Arterial COHb 0 % (0.0-3.0); Arterial HCO3 21.9 mmol/L (22.0-26.0); Arterial MetHb 0.2 % (0.0-1.5); Arterial Total Hemglobin 11.2 g/dl (12.0-18.0); MODE VENT - AC
[2016-08-03] MEDS: LEVOTHYROXINE 100 MCG VIAL IV SCH (09:28)
[2016-08-03] MEDS: FUROSEMIDE 40 MG INJ IV SCH ×2 (09:31→20:40)
[2016-08-03] MEDS: FAMOTIDINE 20 MG INJ IV SCH (09:31)
[2016-08-03] MEDS: CEFEPIME 1GM/50 ML (PMX) 50 ML IVPB SCH ×2 (09:31→21:35)
[2016-08-03] MEDS: HEPARIN 5,000 UNIT/0.5 ML VIAL SC SCH ×2 (09:32→21:35)
--- NOTE | 2016-08-03 10:27 | PN ---
DATE: 08/03/2016 SUBJECTIVE: The patient remains critically ill on pressor support, on inotropic support, on full ve ntilatory support. The patient has been placed on diuretic therapy and urinary output approximately 800 mL in the last 24 hours. No other acute events noted. OBJECTIVE: VITAL SIGNS: Blood pressure is 99/69, respirations 16, pulse 90, temperature 98.6. I's and O's 1.2 liters in, 750 out. HEENT: Head is normocephalic. NECK: Supple. HEART: Regular rate. LUNGS: Show diminished breath sounds at the bases. ABDOMEN: Soft, nontender to palpation. No rebound or guarding. EXTREMITIES: Negative for clubbing, cyanosis. Positive edema. DERMATOLOGIC: No rashes. MUSCULOSKELETAL: No joint effusions. NEUROLOGIC: No change in exam. MEDICATIONS: The patient's medications have been reviewed. LABORATORY DATA: Showed sodium 141, potassium 2.9, chloride 104, BUN 22, creatinine 1.25, calcium 8 .3. White count is 11.8, hemoglobin 10.0, hematocrit 32.6, platelet count is 121. The patient's FE Na is less than 1%. Protein-creatinine ratio approximately 300 mg per gram of creatinine. Renal ul trasound shows unremarkable findings. The patient's 2D echo shows a dilated IVC and ejection fracti on of 20% to 25%, with severe hypokinesis and pulmonary pressures of 69 mmHg and moderate tricuspid regurgitation. ASSESSMENT AND PLAN: 1. Nonoliguric acute kidney injury with unknown baseline creatinine. Etiology is likely multifacto rial secondary to hemodynamics, possible tubular injury with underlying cardiorenal syndrome. The p atient's urinalysis shows FENa less than 1%, which can be seen in septic acute kidney injury, cardio renal syndrome. Additionally, the patient's 2D echo shows ejection fraction of 25%, moderate tricus pid regurgitation, dilated IVC, findings consistent with cardiorenal pathophysiology. The patient's renal function has improved with inotropic support and with initiating diuretic therapy. The patie nt's renal ultrasound shows no evidence of obstruction. At this point, we will continue current marvin atment plan, continue diuretic therapy, continue inotropic support, wean off if possible. Maintain MAP of 65 to maintain adequate renal perfusion. Otherwise, continue supportive care, renally dose a ll meds, avoid nephrotoxins. 2. Hypokalemia, replete potassium chloride. 3. Mineral bone disorder. Continue to monitor calcium and phosphorus levels. No need for phosphat e binders. 4. Anemia. Continue to monitor hemoglobin and hematocrit levels. 5. Hypomagnesemia, status post repletion. Continue to monitor. 6. Shock. Etiology is cardiogenic, possible septic. The patient's 2D echo shows ejection fraction of 25%. The patient's blood cultures have been negative. The patient remains on antibiotic therap y. The patient is being weaned off pressor support. We will continue current treatment plan, minim ize IV fluids in the setting of decompensated heart failure. 7. Ventilatory-dependent respiratory failure. Vent settings have been reviewed. ABG has been revi ewed. Continue to monitor. 8. Elevated troponin, possible non-ST elevation myocardial infarction type 2. Continue current med ical management. 9. Acute congestive heart failure exacerbation, systolic and diastolic. Continue current medical m anagement. Follow up with cardiology. 10. Hypothyroidism. Continue Synthroid. 11. History of depression. 12. Sepsis secondary to pneumonia, possibly urinary tract infection. Continue current antibiotic r egimen. Cultures have been reviewed and negative to date. Please note I spent over 35 minutes of critical care time with this patient. Dictated By: LACEY ROSAS/DAISY Conf#: [id number] DID#: [id number]
--- NOTE | 2016-08-03 10:35 | CONS ---
Date/Time of Note Date/Time of Note DATE: 08/03/16 TIME: 10:31 Assessment/Plan Assessment/Plan Additional Assessment/Plan Chest x-ray was reviewed from today which is again showing bilateral it without infiltrates, which has the appearance of combination of pulmonary edema as well as superimposed pneumonia. Ventilator setting; AC of 14, tidal volume 500, PEEP of 5, 40% FiO2. Patient currently on Levophed at 3 mics per minute. Dobutamine at 2.5 mics per kilogram per minute. Next Assessment recommendations; 1. Patient admitted for respiratory failure due to bilateral pneumonia as well as severe congestive heart failure from underlying cardiomyopathy. 2. Persistent hypotension, improving. 3. Persistent diffuse infiltrates on chest x-ray. 4. Improving renal function. 5. Hypothyroidism. Continue current supportive care. A CPAP trial will be given again today. However based upon chest x-ray finding it is unlikely patient can be extubated at this time. Vancomycin added yesterday to antibiotic regimen. 35 minutes of critical care time was spent evaluating the patient. Consultation Date/Type/Reason Admit Date/Time July 31, 2016 at 22:25 Type of Consultation: Pulmonary/critical care Referring Provider: VLAD LAIRD 24 HR Interval Summary Free Text/Dictation Patient's condition remains critical. Patient however is completely awake and follows simple commands. Still requiring Levophed although it is significantly reduced bruising. Urine output is improving. Next General; elderly lady, orally intubated, awake and alert. Currently in no distress. Exam/Review of Systems Vital Signs Vitals Vital Signs Date Time Temp Pulse Resp B/P Pulse Ox O2 Delivery O2 Flow Rate FiO2 08/03/16 09:58 40 08/03/16 08:00 Bag Valve Mask 08/03/16 08:00 89 08/03/16 08:00 99.0 22 104/70 100 07/31/16 21:02 4.0 Intake and Output 08/02/16 08/02/16 08/03/16 15:00 23:00 07:00 Intake Total 803.080 ml 576.740 ml 408.600 ml Output Total 104 ml 500 ml 290 ml Balance 699.080 ml 76.740 ml 118.600 ml Exam HEENT examination; supple neck, positive JVD. No lymphadenopathy. Midline trachea. No thyromegaly. Pupils are equal and reactive to light. Patient has fair dentition. Chest examination; scattered crackles bilaterally. S1-S2 audible, no murmurs. Regular rhythm. Abdomen examination; soft, nondistended, nontender. No organomegaly. Bowel sounds audible. Extremity exam is; no peripheral edema. Pulses 1+ bilaterally. TARIFF COUNSEL examination; patient is awake, alert. Follows simple commands and moves all 4 extremities. Results Result Diagram: 08/03/16 0510 08/03/16 0510 Results 24 hrs Laboratory Tests Test 08/03/16 05:10 08/03/16 07:00 White Blood Count 11.8 #H Red Blood Count 3.18 L Hemoglobin 10.0 L Hematocrit 32.6 L Mean Corpuscular Volume 102.5 H Mean Corpuscular Hemoglobin 31.4 Mean Corpuscular Hemoglobin Concent 30.7 L Red Cell Distribution Width 17.2 H Platelet Count 121 #L Mean Platelet Volume 12.4 H Neutrophils % 77.9 H Lymphocytes % 13.7 L Monocytes % 5.3 Eosinophils % 1.5 Basophils % 0.2 Nucleated Red Blood Cells % 0.3 H Neutrophils # 9.2 H Lymphocytes # 1.6 Monocytes # 0.6 Eosinophils # 0.2 Basophils # 0.0 Nucleated Red Blood Cells # 0.0 Sodium Level 141 Potassium Level 2.9 *L Chloride Level 104 Carbon Dioxide Level 25 Anion Gap 15 Blood Urea Nitrogen 22 H Creatinine 1.25 H Glucose Level 133 Calcium Level 8.3 L Phosphorus Level 3.2 Magnesium Level 2.0 Blood Gas Specimen Source Blood arterial Arterial Blood Date Drawn 08/03/2016 7:57:07 AM Arterial Blood pH (Temp corrected) 7.420 Arterial Blood pCO2 (Temp correct) 34.6 L Arterial Blood pO2 (Temp corrected) 77.8 L Arterial Blood HCO3 21.9 L Arterial Blood Base Excess -2.0 Arterial Blood Oxygen Saturation 95.2 Clarence Test ACCEPTAB Arterial Blood Gas Puncture Site Right Radial Arterial Blood Carboxyhemoglobin 0 Arterial Blood Methemoglobin 0.2 Blood Gas A-a O2 Differential 167.6 H Oxyhemoglobin Percent 95.0 Total Hemoglobin 11.2 L Blood Gas Temperature 37.0 Blood Gas Respiration Rate 14.0 Blood Gas Actual Respiration Rate 28 Blood Gas Modality VENT - AC FiO2 40.0 Blood Gas Tidal Volume 400.0 Blood Gas Low PEEP Setting 5.0 Blood Gas Notified Whom JLD Blood Gas Notified Time 08/03/2016 8:34:51 AM Medications Medications Current Medications Dextrose/Sodium Chloride (D5-1/2ns) 1,000 ml @ 25 mls/hr Q24H IV Last administered on 08/01/16 11:07; Admin Dose 100 MLS/HR; Start 07/31/16 at 23:04 Ondansetron HCl (Zofran Inj) 4 mg Q6H PRN IV NAUSEA AND/OR VOMITING; Start at 23:30 Acetaminophen (Tylenol Liquid) 650 mg Q6H PRN PO PAIN LEVEL 1-3 OR FEVER; Start 07/31/16 at 23:30 Lorazepam (Ativan) 1 mg Q2H PRN IV ANXIETY; Start 07/31/16 at 23:30 Famotidine (Pepcid Iv) 20 mg DAILY IV Last administered on 08/03/16 09:31; Admin Dose 20 MG; Start 08/01/16 at 09:00 Heparin Sodium (Porcine) 5000 unit 5,000 unit Q12 SC Last administered on 09:32; Admin Dose 5,000 UNIT; Start 08/01/16 at 09:00 Cefepime HCl 50 ml @ 100 mls/hr Q12 IVPB Last administered on 08/03/16 09:31 ; Admin Dose 100 MLS/HR; Start 08/01/16 at 09:00 Azithromycin 250 ml @ 250 mls/hr Q24H IVPB Last administered on 08/02/16 18: 01; Admin Dose 250 MLS/HR; Start 08/01/16 at 13:30 Fentanyl 100 ml @ 5 mls/hr TITRATE IV Last administered on 08/02/16 04:25; Admin Dose 5 MLS/HR; Start 08/01/16 at 13:30 Propofol (Diprivan) 100 ml @ 2.343 mls/ hr Q12H IV Last administered on 14:53; Admin Dose 3.749 MLS/HR; Start 08/01/16 at 13:30 Levothyroxine Sodium (Synthroid Iv) 75 mcg DAILY IV Last administered on 09:28; Admin Dose 75 MCG; Start 08/01/16 at 13:30 Sertraline HCl 50 mg 50 mg DAILY NGT Last administered on 5/14/17at 14:21; Admin Dose 50 MG; Start 08/01/16 at 13:30; Status Future Hold Dobutamine HCl/ Dextrose 250 ml @ 11.715 mls/ hr TITRATE IV Last administered on 08/02/16 14:56; Admin Dose 11.715 MLS/HR; Start 08/01/16 at 16:30 Vancomycin HCl 250 ml @ 125 mls/hr Q24H IVPB ; Start 08/03/16 at 16:00 Norepinephrine/ Dextrose (Levophed/D5W) 500 ml @ 1.87 mls/hr TITRATE IV Last administered on 08/02/16 17:55; Admin Dose 1.87 MLS/HR; Start 08/02/16 at 16:00 Furosemide (Lasix) 40 mg DAILY IV Last administered on 08/03/16 09:31; Admin Dose 40 MG; Start 08/02/16 at 16:30 JORGE CHU August 03, 2016 10:35
--- NOTE | 2016-08-03 11:45 | PN ---
Date/Time of Note Date/Time of Note DATE: 08/03/16 TIME: 11:38 Assessment/Plan VTE Prophylaxis VTE Prophylaxis Intervention: heparin Lines/Catheters IV Catheter Type (from Nrs): Central Line Central line still needed: Yes Urinary Cath still in place: Yes Reason Cath still needed: other (indicate) Assessment/Plan Assessment/Plan 1. Acute hypoxic respiratory failure remains ventilator dependent * Continue vent support / pulmonology consult appreciated / ?weaning 2. Shock secondary to severe heart failure versus sepsis from pneumonia * Continue to wean pressor support with Levophed and now dobutamine / now on diuresis 3. Bilateral pneumonia * continue cefepime and azithromycin 4. Nitrite positive UTI 5. Acute kidney injury with CKD with oliguria secondary to shock: improving 6. Congestive heart failure exacerbation * echo shows severe CM likely ischemic with EF 20-25% and Pulm HTN 7. Non-STEMI likely type II from shock 8. Hypertension > Hypotension (shock) 9. Poorly controlled hypothyroidism: on IV synthroid / repeat TSH in about a week 10. Chronic depression * According to patient's friends she has been not taking her medications, has not been acting the same and has not been attending her usual activities for the past several weeks * Cannot rule out underlying neurological event as well 11. Hypokalemia: replace DISPO: Continue ICU support/vent management and weaning /IV antibiotics. Wean pressors as tolerated Appreciate all consults. Critical care time: > 35 minutes Prophylaxis: Heparin Subjective 24 Hr Interval Summary Free Text/Dictation Patient seen and examined. Intubated and sedated for comfort, with low dose pressor support. Subjective hx not possible: pt critical status Exam/Review of Systems Vital Signs Vitals Vital Signs Date Time Temp Pulse Resp B/P Pulse Ox O2 Delivery O2 Flow Rate FiO2 08/03/16 09:58 40 08/03/16 08:00 Bag Valve Mask 08/03/16 08:00 89 08/03/16 08:00 99.0 22 104/70 100 07/31/16 21:02 4.0 Intake and Output 08/02/16 08/02/16 08/03/16 15:00 23:00 07:00 Intake Total 803.080 ml 576.740 ml 408.600 ml Output Total 104 ml 500 ml 290 ml Balance 699.080 ml 76.740 ml 118.600 ml Exam Constitutional: awake, confused, follows commands, restraints ENMT: intubated, male facial hair distribution Respiratory: clear to auscultation Cardiovascular: regular rate and rhythm Gastrointestinal: soft, No distended Musculoskeletal: nl extremities to inspection, with mild pitting edema in both feet Results Result Diagram: 08/03/16 0510 08/03/16 0510 Results 24 hrs Laboratory Tests Test 08/03/16 05:10 08/03/16 07:00 White Blood Count 11.8 #H Red Blood Count 3.18 L Hemoglobin 10.0 L Hematocrit 32.6 L Mean Corpuscular Volume 102.5 H Mean Corpuscular Hemoglobin 31.4 Mean Corpuscular Hemoglobin Concent 30.7 L Red Cell Distribution Width 17.2 H Platelet Count 121 #L Mean Platelet Volume 12.4 H Neutrophils % 77.9 H Lymphocytes % 13.7 L Monocytes % 5.3 Eosinophils % 1.5 Basophils % 0.2 Nucleated Red Blood Cells % 0.3 H Neutrophils # 9.2 H Lymphocytes # 1.6 Monocytes # 0.6 Eosinophils # 0.2 Basophils # 0.0 Nucleated Red Blood Cells # 0.0 Sodium Level 141 Potassium Level 2.9 *L Chloride Level 104 Carbon Dioxide Level 25 Anion Gap 15 Blood Urea Nitrogen 22 H Creatinine 1.25 H Glucose Level 133 Calcium Level 8.3 L Phosphorus Level 3.2 Magnesium Level 2.0 Blood Gas Specimen Source Blood arterial Arterial Blood Date Drawn 08/03/2016 7:57:07 AM Arterial Blood pH (Temp corrected) 7.420 Arterial Blood pCO2 (Temp correct) 34.6 L Arterial Blood pO2 (Temp corrected) 77.8 L Arterial Blood HCO3 21.9 L Arterial Blood Base Excess -2.0 Arterial Blood Oxygen Saturation 95.2 Clarence Test ACCEPTAB Arterial Blood Gas Puncture Site Right Radial Arterial Blood Carboxyhemoglobin 0 Arterial Blood Methemoglobin 0.2 Blood Gas A-a O2 Differential 167.6 H Oxyhemoglobin Percent 95.0 Total Hemoglobin 11.2 L Blood Gas Temperature 37.0 Blood Gas Respiration Rate 14.0 Blood Gas Actual Respiration Rate 28 Blood Gas Modality VENT - AC FiO2 40.0 Blood Gas Tidal Volume 400.0 Blood Gas Low PEEP Setting 5.0 Blood Gas Notified Whom JLD Blood Gas Notified Time 08/03/2016 8:34:51 AM Medications Medications Current Medications Dextrose/Sodium Chloride (D5-1/2ns) 1,000 ml @ 25 mls/hr Q24H IV Last administered on 08/01/16 11:07; Admin Dose 100 MLS/HR; Start 07/31/16 at 23:04 Ondansetron HCl (Zofran Inj) 4 mg Q6H PRN IV NAUSEA AND/OR VOMITING; Start at 23:30 Acetaminophen (Tylenol Liquid) 650 mg Q6H PRN PO PAIN LEVEL 1-3 OR FEVER; Start 07/31/16 at 23:30 Lorazepam (Ativan) 1 mg Q2H PRN IV ANXIETY; Start 07/31/16 at 23:30 Famotidine (Pepcid Iv) 20 mg DAILY IV Last administered on 08/03/16 09:31; Admin Dose 20 MG; Start 08/01/16 at 09:00 Heparin Sodium (Porcine) 5000 unit 5,000 unit Q12 SC Last administered on 09:32; Admin Dose 5,000 UNIT; Start 08/01/16 at 09:00 Cefepime HCl 50 ml @ 100 mls/hr Q12 IVPB Last administered on 08/03/16 09:31 ; Admin Dose 100 MLS/HR; Start 08/01/16 at 09:00 Azithromycin 250 ml @ 250 mls/hr Q24H IVPB Last administered on 08/02/16 18: 01; Admin Dose 250 MLS/HR; Start 08/01/16 at 13:30 Fentanyl 100 ml @ 5 mls/hr TITRATE IV Last administered on 08/02/16 04:25; Admin Dose 5 MLS/HR; Start 08/01/16 at 13:30 Propofol (Diprivan) 100 ml @ 2.343 mls/ hr Q12H IV Last administered on 14:53; Admin Dose 3.749 MLS/HR; Start 08/01/16 at 13:30 Levothyroxine Sodium (Synthroid Iv) 75 mcg DAILY IV Last administered on 09:28; Admin Dose 75 MCG; Start 08/01/16 at 13:30 Sertraline HCl 50 mg 50 mg DAILY NGT Last administered on 08/01/16 14:21; Admin Dose 50 MG; Start 08/01/16 at 13:30; Status Future Hold Dobutamine HCl/ Dextrose 250 ml @ 11.715 mls/ hr TITRATE IV Last administered on 08/02/16 14:56; Admin Dose 11.715 MLS/HR; Start 08/01/16 at 16:30 Vancomycin HCl 250 ml @ 125 mls/hr Q24H IVPB ; Start 08/03/16 at 16:00 Norepinephrine/ Dextrose (Levophed/D5W) 500 ml @ 1.87 mls/hr TITRATE IV Last administered on 08/02/16 17:55; Admin Dose 1.87 MLS/HR; Start 08/02/16 at 16:00 Furosemide (Lasix) 40 mg DAILY IV Last administered on 08/03/16 09:31; Admin Dose 40 MG; Start 08/02/16 at 16:30 Procedures Procedures PROCEDURE: XR Chest. CLINICAL INDICATION: Rule out pneumonia. TECHNIQUE: Single frontal supine portable chest was obtained. COMPARISON: 08/02/2016. FINDINGS: Cardiac silhouette is enlarged and there is calcification in the thoracic aorta. Pulmonary vasculature appears prominent. There is mixed interstitial alveolar opacities bilaterally which appear slightly worse in the prior study. There are tiny bilateral pleural effusions. Endotracheal tube, right PICC line and nasogastric tubes appear unchanged. IMPRESSION: 1. Slight interval worsening of mixed bilateral interstitial and alveolar infiltrates in the background of congestion suggesting congestive heart failure. 2. Tiny bilateral pleural effusions. 3. Aortic atherosclerosis. RPTAT: [facility] Physician Linus Date Time Electronically viewed and signed by Ilia Barton Physician on 08/03/2016 08: 30 JH/ CC: JORGE CHU Echocardiogram Report Patient Name: SOHA GONZALEZ Gender: Female Date: 1950 Study Date: 02-Aug-2016 Prenatal Nurse: Chele Mullen RDCS Location: 115 Ref. Physician: CISCO KING Quality: Adequate Procedures: Transthoracic echocardiogram with complete 2D, M-Mode, and doppler examination. Indications: Congestive Heart Failure. 2D/M Mode Doppler Measurement Value Normal Ranges Measurement Value Normal Ranges LVIDd 2D 5.4 3.5 - 5.6 cm AV Peak Joaquín 1.8 m/sec LVIDs 2D 4.6 2.1 - 4.1 cm AV Peak PG 13.0 mmHg FS 2D 15.6 % LVOT Peak Joaquín 0.8 m/sec LVPWd 2D 0.9 0.6 - 1.1 cm LVOT Peak PG 3.0 mmHg IVSd 2D 0.8 0.6 - 1.1 cm MV E Peak Joaquín 1.0 m/sec IVS/LVPW 2D 1.0 MV Decel Time 77 msec AoR Diam 2D 2.4 2.0 - 3.7 cm TR Peak Joaquín 3.7 m/sec LA/Ao 2D 2 0 - 1 TR Peak PG 54.0 mmHg EDV 2D 157.0 cm3 RVSP 69.0 mmHg ESV 2D 94.8 cm3 LA Dimen 2D 4.1 2.3 - 4.0 cm Findings Left Ventricle: Normal left ventricular cavity size. Normal left ventricular wall thickness. Severe global left ventricular systolic dysfunction. Ejection fraction is visually estimated at 2025 %. Abnormal Diastolic Function. Right Ventricle: Normal right ventricular size. Severe right ventricular hypokinesis. Left Atrium: There is mild enlargement of left atrium. Right Atrium: The right atrium is normal in size. Mitral Valve: Mitral valve leaflets appear mildly thickened. Mild to moderate mitral valve regurgitation. Aortic Valve: Normal appearance of the aortic valve. No significant aortic stenosis or insufficiency. Tricuspid Valve: Estimated peak PA systolic pressure 69 mmHg. There is moderate tricuspid regurgitation. Pulmonic Valve: Normal pulmonic valve appearance. There is mild pulmonic regurgitation. Pericardium: Trivial pericardial effusion. Pleural effusion seen. Aorta: Normal aortic root. IVC: Dilated inferior vena cava without respiratory collapse, however, patient on ventilator. Conclusions 1. The left ventricle is normal in size with severely reduced systolic function. There is global hypokinesis. 2. Estimated left ventricular ejection fraction of 20-25%. 3. The right ventricle is normal in size with severe hypokinesis. 4. Mild left atrial enlargement. 5. Pulmonary hypertension with estimated RVSP of 69 mmHg. Electronically Signed By: Stephen Mendez 02-Aug-2016 16:01:12 -0700 Patient Name: SOHA GONZALEZ Study Date: 02-Aug-[id number] RENATA BEAN August 03, 2016 11:45
[2016-08-03] MEDS: DOBUTamine/D5W 1 MG/ML DRIP 250 ML IV SCH (11:50)
[2016-08-03 11:56] LABS: AADO2 Arterial 180.7 mmHg (7.0-24.0); Allen Test ACCEPTAB; Arterial Base Excess 0.1 mmol/L (-3.0-3); Arterial COHb 0.1 % (0.0-3.0); Arterial Fraction of Oxyhgb 93.7 % (93.0-99.0); Arterial HCO3 23.4 mmol/L (22.0-26.0); Arterial MetHb 0.3 % (0.0-1.5); Blood Gas PS 10; MODE VENT - CPAP
[2016-08-03] MEDS ORDERED: VANCOMYCIN 1 GM in NS 250 ML IVPB SCH ×3 (12:00→18:00)
[2016-08-03] MEDS: PROPOFOL 100 ML IV SCH (14:03)
[2016-08-03] MEDS: AZITHROMYCIN 500MG/NS (PMX) 250 ML IVPB SCH (15:37)
[2016-08-03 17:18] LABS: CREATININE 1.18 mg/dl (0.44-1.00)
[2016-08-03 17:19] LABS: CALCIUM 8.3 mg/dl (8.4-10.2)
[2016-08-03 17:23] LABS: POTASSIUM 2.7 mmol/L (3.5-5.1)
[2016-08-03] MEDS ORDERED: POTASSIUM CHLORIDE 20 MEQ in SOD CHLORIDE 0.9% 100 ML IVPB ONE (18:30)
[2016-08-03] MEDS ORDERED: POTASSIUM CHLORIDE (SR) 10 MEQ TAB PO ONE (18:30)
[2016-08-03] MEDS ORDERED: POTASSIUM CHLORIDE 20 MEQ POWDER FOR ORAL SOLN NGT SCH (18:49)
[2016-08-03] MEDS: IPRATROPIUM (HFA) 12.9 GM INHALER INH SCH (19:22)
[2016-08-03] MEDS: ALBUTEROL 18 GM INHALER INH SCH (19:22)
--- NOTE | 2016-08-03 19:44 | CONS ---
Date/Time of Note Date/Time of Note DATE: 08/03/16 TIME: 19:43 Assessment/Plan Assessment/Plan Chief Complaint/Hosp Course Assessment: Shock - septic vs cardiogenic Acute on chronic systolic heart failure NSTEMI - likely type 2 Acute hypoxic respiratory failure - intubated and on mechanical ventilation Pneumonia and urinary tract infection - on antibiotics Acute kidney injury Hypothyroidism - TSH 12.8, thyroid replacement per primary team History of hypertension Recommendations: -echocardiogram shows LVEF 20-25%, mild LAE, RVSP 69 mmHg -continue Levophed and dobutamine drips, wean as tolerated -increase Lasix to 40mg IV BID Problems: Consultation Date/Type/Reason Admit Date/Time July 31, 2016 at 22:25 Initial Consult Date Type of Consultation: Cardiology 24 HR Interval Summary Free Text/Dictation Remains on Levophed and dobutamine drips. Detailed Summary Additional Comments Unable to obtain review of systems, patient is intubated. Exam/Review of Systems Vital Signs Vitals Vital Signs Date Time Temp Pulse Resp B/P Pulse Ox O2 Delivery O2 Flow Rate FiO2 08/03/16 18:30 86 16 91/61 96 08/03/16 18:00 Mechanical Ventilator 08/03/16 17:25 40 08/03/16 16:00 98.2 07/31/16 21:02 4.0 Intake and Output 08/02/16 08/02/16 08/03/16 15:00 23:00 07:00 Intake Total 803.080 ml 576.740 ml 433.600 ml Output Total 104 ml 500 ml 290 ml Balance 699.080 ml 76.740 ml 143.600 ml Exam Constitutional: other (intubated), No alert Psych: No nl mood/affect Head: atraumatic, normocephalic Eyes: nl conjunctiva, nl lids ENMT: intubated, nl external ears & nose Neck: supple Respiratory: crackles/rales, diminished breath sounds Cardiovascular: regular rate and rhythm, systolic murmur Gastrointestinal: soft, No distended Musculoskeletal: nl extremities to inspection Extremities: edema, No clubbing, No cyanosis Neurological: No nl mental status, No nl speech Results Result Diagram: 08/03/16 0510 08/03/16 1656 Results 24 hrs Laboratory Tests Test 08/03/16 05:10 5/16/17 07:00 08/03/16 11:30 08/03/16 16:56 White Blood Count 11.8 #H Red Blood Count 3.18 L Hemoglobin 10.0 L Hematocrit 32.6 L Mean Corpuscular Volume 102.5 H Mean Corpuscular Hemoglobin 31.4 Mean Corpuscular Hemoglobin Concent 30.7 L Red Cell Distribution Width 17.2 H Platelet Count 121 #L Mean Platelet Volume 12.4 H Neutrophils % 77.9 H Lymphocytes % 13.7 L Monocytes % 5.3 Eosinophils % 1.5 Basophils % 0.2 Nucleated Red Blood Cells % 0.3 H Neutrophils # 9.2 H Lymphocytes # 1.6 Monocytes # 0.6 Eosinophils # 0.2 Basophils # 0.0 Nucleated Red Blood Cells # 0.0 Sodium Level 141 141 Potassium Level 2.9 *L 2.7 *L Chloride Level 104 103 Carbon Dioxide Level 25 28 Anion Gap 15 13 Blood Urea Nitrogen 22 H 21 H Creatinine 1.25 H 1.18 H Glucose Level 133 126 Calcium Level 8.3 L 8.3 L Phosphorus Level 3.2 Magnesium Level 2.0 Blood Gas Specimen Source Blood arterial Blood arterial Arterial Blood Date Drawn 08/03/2016 7:57:07 AM 08/03/2016 11:45:15 AM Arterial Blood pH (Temp corrected) 7.420 7.461 H Arterial Blood pCO2 (Temp correct) 34.6 L 33.6 L Arterial Blood pO2 (Temp corrected) 77.8 L 65.9 L Arterial Blood HCO3 21.9 L 23.4 Arterial Blood Base Excess -2.0 0.1 Arterial Blood Oxygen Saturation 95.2 94.1 L Clarence Test ACCEPTAB ACCEPTAB Arterial Blood Gas Puncture Site Right Radial Right Radial Arterial Blood Carboxyhemoglobin 0 0.1 Arterial Blood Methemoglobin 0.2 0.3 Blood Gas A-a O2 Differential 167.6 H 180.7 H Oxyhemoglobin Percent 95.0 93.7 Total Hemoglobin 11.2 L 12.0 Blood Gas Temperature 37.0 37.0 Blood Gas Respiration Rate 14.0 Blood Gas Actual Respiration Rate 28 33 Blood Gas Modality VENT - AC VENT - CPAP FiO2 40.0 40.0 Blood Gas Tidal Volume 400.0 Blood Gas Low PEEP Setting 5.0 5.0 Blood Gas Notified Whom JAMES RAMIREZ Blood Gas Notified Time 08/03/2016 8:34:51 AM 08/03/2016 11:56:46 AM Blood Gas Pressure Support 10 Medications Medications Current Medications Dextrose/Sodium Chloride (D5-1/2ns) 1,000 ml @ 25 mls/hr Q24H IV Last administered on 08/03/16 07:00; Admin Dose 25 MLS/HR; Start 07/31/16 at 23:04 Ondansetron HCl (Zofran Inj) 4 mg Q6H PRN IV NAUSEA AND/OR VOMITING; Start at 23:30 Acetaminophen (Tylenol Liquid) 650 mg Q6H PRN PO PAIN LEVEL 1-3 OR FEVER; Start 07/31/16 at 23:30 Lorazepam (Ativan) 1 mg Q2H PRN IV ANXIETY; Start 07/31/16 at 23:30 Famotidine (Pepcid Iv) 20 mg DAILY IV Last administered on 08/03/16 09:31; Admin Dose 20 MG; Start 08/01/16 at 09:00 Heparin Sodium (Porcine) 5000 unit 5,000 unit Q12 SC Last administered on 09:32; Admin Dose 5,000 UNIT; Start 08/01/16 at 09:00 Cefepime HCl 50 ml @ 100 mls/hr Q12 IVPB Last administered on 08/03/16 09:31 ; Admin Dose 100 MLS/HR; Start 08/01/16 at 09:00 Azithromycin 250 ml @ 250 mls/hr Q24H IVPB Last administered on 08/03/16 15: 37; Admin Dose 250 MLS/HR; Start 08/01/16 at 13:30 Fentanyl 100 ml @ 5 mls/hr TITRATE IV Last administered on 08/02/16 04:25; Admin Dose 5 MLS/HR; Start 08/01/16 at 13:30 Propofol (Diprivan) 100 ml @ 2.343 mls/ hr Q12H IV Last administered on 14:03; Admin Dose 3.749 MLS/HR; Start 08/01/16 at 13:30 Levothyroxine Sodium (Synthroid Iv) 75 mcg DAILY IV Last administered on 09:28; Admin Dose 75 MCG; Start 08/01/16 at 13:30 Sertraline HCl 50 mg 50 mg DAILY NGT Last administered on 08/01/16 14:21; Admin Dose 50 MG; Start 08/01/16 at 13:30; Status Future Hold Dobutamine HCl/ Dextrose 250 ml @ 11.715 mls/ hr TITRATE IV Last administered on 08/03/16 11:50; Admin Dose 11.715 MLS/HR; Start 08/01/16 at 16:30 Norepinephrine/ Dextrose (Levophed/D5W) 500 ml @ 1.87 mls/hr TITRATE IV Last administered on 08/02/16 17:55; Admin Dose 1.87 MLS/HR; Start 08/02/16 at 16:00 Furosemide 40 mg 40 mg DAILY IV Last administered on 08/03/16 09:31; Admin Dose 40 MG; Start 08/02/16 at 16:30 Vancomycin HCl 250 ml @ 125 mls/hr Q24H IVPB Last administered on 08/03/16 18 :08; Admin Dose 125 MLS/HR; Start 08/03/16 at 18:00 Potassium Chloride 20 meq/ Sodium Chloride 110 ml @ 55 mls/hr ONCE ONCE IVPB ; Start 08/03/16 at 18:30; Stop 08/03/16 at 20:29 Potassium Chloride (KCl 40 MEQ/250 ML NS) 250 ml @ 62.5 mls/hr ONCE ONCE IVPB ; Start 08/03/16 at 22:30; Stop 08/04/16 at 02:29 Potassium Chloride (Potassium Chloride Pwd/Soln) 60 meq ONCE NGT ; Start at 18:49; Stop 08/03/16 at 20:00 SHERYL WINTER MD August 03, 2016 19:44
[2016-08-03] MEDS: SERTRALINE 50 MG TAB NGT SCH (21:22)
[2016-08-03] MEDS: POTASSIUM CHLORIDE 250 ML IVPB ONE (22:30)
[2016-08-04] VITALS (63 sets, daily range): BP systolic 74–119; BP diastolic 47–92; PULSE 68–141; RESP 10–47
[2016-08-04] MEDS: ALBUTEROL 18 GM INHALER INH SCH ×2 (01:20→08:26)
[2016-08-04] MEDS: IPRATROPIUM (HFA) 12.9 GM INHALER INH SCH ×2 (01:20→08:26)
[2016-08-04] MEDS: PROPOFOL 100 ML IV SCH ×2 (02:39→13:30)
[2016-08-04 04:57] LABS: ADD SCAN DIFF NO
[2016-08-04 05:04] LABS: BASOPHILS % 0.1 % (0.0-2.0); EOSINOPHILS # 0.2 10^3/ul (0.0-0.5); EOSINOPHILS % 1.9 % (0.0-7.0); HEMATOCRIT 34.2 % (37.0-47.0); HEMOGLOBIN 10.8 g/dl (12.0-16.0); LYMPHOCYTES # 1.6 10^3/ul (0.8-2.9); LYMPHOCYTES % 14.2 % (15.0-51.0); MEAN CORPUSCULAR HEMOGLOBIN 31.9 pg (29.0-33.0); MEAN CORPUSCULAR HGB CONC 31.6 g/dl (32.0-37.0); MEAN CORPUSCULAR VOLUME 100.9 fl (82.0-101.0); MEAN PLATELET VOLUME 12.6 fl (7.4-10.4); MONOCYTE # 0.6 10^3/ul (0.3-0.9); MONOCYTES % 5.7 % (0.0-11.0); NEUTROPHIL # 8.6 10^3/ul (1.6-7.5); NEUTROPHILS % 77.3 % (39.0-77.0); NUCLEATED RED BLOOD CELLS% 0.2 /100WBC (0.0-0.0); PLATELET COUNT 141 10^3/UL (140-415); RED BLOOD COUNT 3.39 10^6/ul (4.20-5.40); RED CELL DISTRIBUTION WIDTH 17.2 % (11.5-14.5); WHITE BLOOD COUNT 11.1 10^3/ul (4.8-10.8)
[2016-08-04 05:27] LABS: POTASSIUM 3.8 mmol/L (3.5-5.1)
[2016-08-04 05:30] LABS: CREATININE 1.2 mg/dl (0.44-1.00)
[2016-08-04 05:31] LABS: CALCIUM 8.5 mg/dl (8.4-10.2); MAGNESIUM 1.7 mg/dl (1.7-2.5); PHOSPHORUS 2.1 mg/dl (2.5-4.9)
[2016-08-04] MEDS: POTASSIUM CHLORIDE 250 ML IVPB ONE (05:53)
[2016-08-04] MEDS: FUROSEMIDE 40 MG INJ IV SCH (05:53)
[2016-08-04] MEDS: DEXTROSE 5%-0.45% NACL 1,000 ML IV SCH (05:54)
[2016-08-04] MEDS: LEVOTHYROXINE 100 MCG VIAL IV SCH (08:44)
[2016-08-04] MEDS: CEFEPIME 1GM/50 ML (PMX) 50 ML IVPB SCH (08:44)
[2016-08-04] MEDS: FAMOTIDINE 20 MG INJ IV SCH (08:45)
[2016-08-04] MEDS: HEPARIN 5,000 UNIT/0.5 ML VIAL SC SCH (08:48)
[2016-08-04] MEDS: DOBUTamine/D5W 1 MG/ML DRIP 250 ML IV SCH (09:19)
--- NOTE | 2016-08-04 09:26 | PN ---
DATE: 08/04/2016 SUBJECTIVE: The patient remains critically ill on full ventilatory support, on pressor support, iliana tropic support. No other acute events overnight. No hemoptysis, hematemesis, or hematochezia. OBJECTIVE: VITAL SIGNS: Blood pressure 97/62, respirations 22, pulse 101, temperature 98.6. I'S AND O'S: The patient had 2.7 L in and 1.9 L out. HEENT: Head is normocephalic. NECK: Supple. HEART: Regular rate. LUNGS: Show diminished breath sounds at base. ABDOMEN: Soft, nontender to palpation, no rebound or guarding. EXTREMITIES: Negative for clubbing, cyanosis. Positive edema. DERMATOLOGIC: No rashes. MUSCULOSKELETAL: No joint effusions. NEUROLOGIC: No change in exam. MEDICATIONS: The patient's medications have been reviewed. LABORATORY DATA: Shows sodium 141, potassium 3.8, chloride 104, BUN 21, creatinine 1.20 phosphorus 2.1. White count is 11.1, hemoglobin 10.8, hematocrit 34.2, platelet count is 141. IMAGING: The patient's chest x-ray shows worsening infiltrates, congestion. ASSESSMENT AND PLAN: 1. Nonoliguric acute kidney injury with unknown baseline creatinine. Etiology secondary to hemodyn amics, possible underlying cardiorenal syndrome. The patient's renal function has been stable over the last 24 to 48 hours with inotropic support and diuretic therapy. At this point, would continue current treatment plan. Continue supportive care and renally dose all meds, continue diuretic thera py, maintain MAP above 65. Monitor closely. 2. Hypokalemia. Continue potassium chloride supplementation. 3. Mineral bone disorder, continue to monitor calcium and phosphorus levels. No need for phosphate binders. 4. Shock. Etiology is likely cardiogenic, possible sepsis. The patient remains in decompensated f ailure. Continue inotropic support and diuretic therapy being managed by cardiology. Will monitor closely. 5. Anemia. Continue to monitor hemoglobin and hematocrit levels. 6. Ventilator-dependent respiratory failure. Vent settings have been reviewed. ABG has been revie wed. Continue to monitor. 7. Sdl-VT-xmylqsiby myocardial infarction. Continue medical management. 8. Acute congestive heart failure exacerbation, systolic and diastolic, as stated above. Continue inotropic support. Continue diuretic therapy. Follow up with cardiology. 9. Hypothyroidism. Continue Synthroid. 10. Sepsis, secondary to pneumonia, urinary tract infection. Continue current antibiotic regimen. 11. History of depression. Please note I spent over 35 minutes of critical care time with this patient. Dictated By: LACEY ROSAS/DAISY Conf#: [id number] DID#: [id number]
[2016-08-04] MEDS ORDERED: POTASSIUM PHOSPHATE 15 MM in SOD CHLORIDE 0.9% 250 ML IVPB ONE (10:00)
--- NOTE | 2016-08-04 10:18 | RADRPT ---
PROCEDURE: Chest Radiograph. CLINICAL INDICATION: Respiratory failure. Infiltrates. TECHNIQUE: Single frontal chest radiograph. COMPARISON: Chest radiograph 08/03/2016 FINDINGS: Multiple monitor wires overlying the central chest limit evaluation. An endotracheal tube nasogastr ic tube and right subclavian line remain in place. The distal tip of the endotracheal tube is obscu red by multiple overlying wires. The lines and tubes are grossly stable in position. Bilateral int erstitial and airspace opacities are stable in distribution and extent. No new infiltrates are ident ified.. Small bilateral pleural effusions are unchanged. IMPRESSION: 1. Stable radiographic appearance of the chest compared to 08/03/2016. RPTAT: KK .Kenan Mazariegos MD, MD Date Time Electronically viewed and signed by .Kenan Mazariegos MD, on 08/04/2016 10:18 .B/
--- NOTE | 2016-08-04 10:21 | PN ---
Date/Time of Note Date/Time of Note DATE: 08/04/16 TIME: :17 Assessment/Plan VTE Prophylaxis VTE Prophylaxis Intervention: heparin Lines/Catheters IV Catheter Type (from Nrs): Central Line Central line still needed: Yes Urinary Cath still in place: Yes Reason Cath still needed: other (indicate) (Intubated) Assessment/Plan Assessment/Plan 1. Acute hypoxic respiratory failure remains ventilator dependent * Continue vent support / pulmonology consult appreciated /possible weaning after review of today's x-rays 2. Shock secondary to severe heart failure versus sepsis from pneumonia * Continue to wean pressor support with Levophed and now dobutamine / now on diuresis 3. Bilateral pneumonia * continue cefepime and azithromycin 4. Nitrite positive UTI 5. Acute kidney injury with CKD with oliguria secondary to shock: improving 6. Congestive heart failure exacerbation * echo shows severe CM likely ischemic with EF 20-25% and Pulm HTN 7. Non-STEMI likely type II from shock 8. Hypertension > Hypotension (shock) 9. Poorly controlled hypothyroidism: on IV synthroid / repeat TSH in about a week 10. Chronic depression * According to patient's friends she has been not taking her medications, has not been acting the same and has not been attending her usual activities for the past several weeks * Cannot rule out underlying neurological event as well 11. Hypokalemia: replace DISPO: Continue ICU support/vent management and weaning /IV antibiotics. Will start tube feeds Wean pressors as tolerated Appreciate all consults. Critical care time: > 35 minutes Prophylaxis: Heparin Subjective 24 Hr Interval Summary Free Text/Dictation Patient seen and evaluated. Remains intubated, and awake despite low-dose propofol. Remains also on pressor support with dopamine as well as Levophed. Exam/Review of Systems Vital Signs Vitals Vital Signs Date Time Temp Pulse Resp B/P Pulse Ox O2 Delivery O2 Flow Rate FiO2 08/04/16 09:45 99 21 91/64 99 08/04/16 08:27 40 08/04/16 08:00 97.5 08/04/16 07:00 Mechanical Ventilator 07/31/16 21:02 4.0 Intake and Output 08/03/16 08/03/16 08/04/16 15:00 23:00 07:00 Intake Total 599.866 ml 1273.469 ml 821.00 ml Output Total 1040 ml 500 ml 375 ml Balance -440.134 ml 773.469 ml 446.00 ml Exam Constitutional: awake, confused, follows commands, restraints ENMT: intubated, male facial hair distribution Respiratory: clear to auscultation Cardiovascular: regular rate and rhythm Gastrointestinal: soft, No distended Musculoskeletal: nl extremities to inspection, with mild pitting edema in both feet Results Result Diagram: 08/04/16 0444 08/04/16 0444 Results 24 hrs Laboratory Tests Test 08/03/16 11:30 08/03/16 16:56 08/04/16 00:20 08/04/16 04:44 Blood Gas Specimen Source Blood arterial Arterial Blood Date Drawn 08/03/2016 11:45:15 AM Arterial Blood pH (Temp corrected) 7.461 H Arterial Blood pCO2 (Temp correct) 33.6 L Arterial Blood pO2 (Temp corrected) 65.9 L Arterial Blood HCO3 23.4 Arterial Blood Base Excess 0.1 Arterial Blood Oxygen Saturation 94.1 L Clarence Test ACCEPTAB Arterial Blood Gas Puncture Site Right Radial Arterial Blood Carboxyhemoglobin 0.1 Arterial Blood Methemoglobin 0.3 Blood Gas A-a O2 Differential 180.7 H Oxyhemoglobin Percent 93.7 Total Hemoglobin 12.0 Blood Gas Temperature 37.0 Blood Gas Actual Respiration Rate 33 Blood Gas Modality VENT - CPAP FiO2 40.0 Blood Gas Low PEEP Setting 5.0 Blood Gas Pressure Support 10 Blood Gas Notified Whom JLD Blood Gas Notified Time 08/03/2016 11:56:46 AM Sodium Level 141 141 Potassium Level 2.7 *L 4.5 3.8 Chloride Level 103 104 Carbon Dioxide Level 28 26 Anion Gap 13 15 Blood Urea Nitrogen 21 H 21 H Creatinine 1.18 H 1.20 H Glucose Level 126 148 Calcium Level 8.3 L 8.5 White Blood Count 11.1 H Red Blood Count 3.39 L Hemoglobin 10.8 L Hematocrit 34.2 L Mean Corpuscular Volume 100.9 Mean Corpuscular Hemoglobin 31.9 Mean Corpuscular Hemoglobin Concent 31.6 L Red Cell Distribution Width 17.2 H Platelet Count 141 Mean Platelet Volume 12.6 H Neutrophils % 77.3 H Lymphocytes % 14.2 L Monocytes % 5.7 Eosinophils % 1.9 Basophils % 0.1 Nucleated Red Blood Cells % 0.2 H Neutrophils # 8.6 H Lymphocytes # 1.6 Monocytes # 0.6 Eosinophils # 0.2 Basophils # 0.0 Nucleated Red Blood Cells # 0.0 Phosphorus Level 2.1 #L Magnesium Level 1.7 Medications Medications Current Medications Dextrose/Sodium Chloride (D5-1/2ns) 1,000 ml @ 25 mls/hr Q24H IV Last administered on 08/03/16 07:00; Admin Dose 25 MLS/HR; Start 07/31/16 at 23:04 Ondansetron HCl (Zofran Inj) 4 mg Q6H PRN IV NAUSEA AND/OR VOMITING; Start at 23:30 Acetaminophen (Tylenol Liquid) 650 mg Q6H PRN PO PAIN LEVEL 1-3 OR FEVER; Start 07/31/16 at 23:30 Lorazepam (Ativan) 1 mg Q2H PRN IV ANXIETY; Start 07/31/16 at 23:30 Famotidine (Pepcid Iv) 20 mg DAILY IV Last administered on 08/04/16 08:45; Admin Dose 20 MG; Start 08/01/16 at 09:00 Heparin Sodium (Porcine) 5000 unit 5,000 unit Q12 SC Last administered on 08:48; Admin Dose 5,000 UNIT; Start 08/01/16 at 09:00 Cefepime HCl 50 ml @ 100 mls/hr Q12 IVPB Last administered on 08/04/16 08:44 ; Admin Dose 100 MLS/HR; Start 08/01/16 at 09:00 Azithromycin 250 ml @ 250 mls/hr Q24H IVPB Last administered on 08/03/16 15: 37; Admin Dose 250 MLS/HR; Start 08/01/16 at 13:30 Fentanyl 100 ml @ 5 mls/hr TITRATE IV Last administered on 08/02/16 04:25; Admin Dose 5 MLS/HR; Start 08/01/16 at 13:30 Propofol (Diprivan) 100 ml @ 2.343 mls/ hr Q12H IV Last administered on 02:39; Admin Dose 7.029 MLS/HR; Start 08/01/16 at 13:30 Levothyroxine Sodium (Synthroid Iv) 75 mcg DAILY IV Last administered on 08:44; Admin Dose 75 MCG; Start 08/01/16 at 13:30 Sertraline HCl 50 mg 50 mg DAILY NGT Last administered on 08/01/16 14:21; Admin Dose 50 MG; Start 08/01/16 at 13:30; Status Future Hold Dobutamine HCl/ Dextrose 250 ml @ 11.715 mls/ hr TITRATE IV Last administered on 08/04/16 09:19; Admin Dose 11.715 MLS/HR; Start 08/01/16 at 16:30 Norepinephrine 16 mg/Dextrose 500 ml @ 1.87 mls/hr TITRATE IV Last administered on 08/03/16 21:00; Admin Dose 6 MLS/HR; Start 08/02/16 at 16:00 Vancomycin HCl 250 ml @ 125 mls/hr Q24H IVPB Last administered on 08/03/16 18 :08; Admin Dose 125 MLS/HR; Start 08/03/16 at 18:00 Potassium Phosphate/Sodium Chloride (K Phos (Mm)/NS) 255 ml @ 63.75 mls/ hr ONCE ONCE IVPB ; Start 08/04/16 at 10:00; Stop 08/04/16 at 13:59 Procedures Procedures PROCEDURE: XR Chest. CLINICAL INDICATION: Rule out pneumonia. TECHNIQUE: Single frontal supine portable chest was obtained. COMPARISON: 08/02/2016. FINDINGS: Cardiac silhouette is enlarged and there is calcification in the thoracic aorta. Pulmonary vasculature appears prominent. There is mixed interstitial alveolar opacities bilaterally which appear slightly worse in the prior study. There are tiny bilateral pleural effusions. Endotracheal tube, right PICC line and nasogastric tubes appear unchanged. IMPRESSION: 1. Slight interval worsening of mixed bilateral interstitial and alveolar infiltrates in the background of congestion suggesting congestive heart failure. 2. Tiny bilateral pleural effusions. 3. Aortic atherosclerosis. RPTAT: [facility] Physician Linus Date Time Electronically viewed and signed by Ilia Barton Physician on 08/03/2016 08: 30 JH/ CC: JORGE CHU BOLATITO M. August 04, 2016 10:21
--- NOTE | 2016-08-04 10:51 | CONS ---
Date/Time of Note Date/Time of Note DATE: 08/04/16 TIME: 10:46 Assessment/Plan Assessment/Plan Additional Assessment/Plan Chest x-ray was reviewed from today which is showing significant improvement in bilateral it without infiltrates. Endotracheal tube is at an adequate level. Next Current ventilator settings AC of 14, tidal volume 400, PEEP of 5, 40% FiO2. Patient has been on propofol at 10 mics per kilogram per minute, currently on hold. Next Assessment recommendations; 1. Patient admitted with bilateral pneumonia and CHF with underlying cardiomyopathy with significant clinical and radiological improvement. 2. Hypotension with interval resolution. Patient off pressors. 3. Stable renal insufficiency. 4. Hypothyroidism. Patient had been switched over to CPAP mode, we will observe the patient for the next 45 minutes and repeat a blood gas. If the parameters are adequate, she will be extubated. Meanwhile continue current supportive care. 35 minutes of critical care time was spent evaluating the patient. Consultation Date/Type/Reason Admit Date/Time July 31, 2016 at 22:25 Type of Consultation: Pulmonary/critical care 24 HR Interval Summary Free Text/Dictation Patient condition remains critical. Patient however has been weaned off pressor support. Remains completely awake alert. Follows simple commands. Has remained hemodynamically stable. General exam; elderly woman, orally intubated, awake and alert. Currently in no distress. Exam/Review of Systems Vital Signs Vitals Vital Signs Date Time Temp Pulse Resp B/P Pulse Ox O2 Delivery O2 Flow Rate FiO2 08/04/16 10:10 40 08/04/16 09:45 99 21 91/64 99 08/04/16 08:00 97.5 08/04/16 07:00 Mechanical Ventilator 07/31/16 21:02 4.0 Intake and Output 08/03/16 08/03/16 08/04/16 15:00 23:00 07:00 Intake Total 599.866 ml 1273.469 ml 907.72 ml Output Total 1040 ml 500 ml 675 ml Balance -440.134 ml 773.469 ml 232.72 ml Exam HEENT exam; supple neck, no lymphadenopathy. Positive JVD. Orally intubated. Patient has bilateral cataracts. Has multiple carious teeth. No neck masses. No thyromegaly. No neck bruits. Chest examination; diminished but clear vessel. S1-S2 audible, no murmurs. Regular rhythm. Abdomen examination; soft, nontender. No organomegaly. Bowel sounds audible. Extremity examination; no peripheral edema. Patient does have ecchymosis involving all 4 extremities. Pulses 1+ bilaterally. [employer] examination; no focal deficit. Results Result Diagram: 08/04/16 0444 08/04/16 0444 Results 24 hrs Laboratory Tests Test 08/03/16 11:30 08/03/16 16:56 08/04/16 00:20 08/04/16 04:44 Blood Gas Specimen Source Blood arterial Arterial Blood Date Drawn 08/03/2016 11:45:15 AM Arterial Blood pH (Temp corrected) 7.461 H Arterial Blood pCO2 (Temp correct) 33.6 L Arterial Blood pO2 (Temp corrected) 65.9 L Arterial Blood HCO3 23.4 Arterial Blood Base Excess 0.1 Arterial Blood Oxygen Saturation 94.1 L Clarence Test ACCEPTAB Arterial Blood Gas Puncture Site Right Radial Arterial Blood Carboxyhemoglobin 0.1 Arterial Blood Methemoglobin 0.3 Blood Gas A-a O2 Differential 180.7 H Oxyhemoglobin Percent 93.7 Total Hemoglobin 12.0 Blood Gas Temperature 37.0 Blood Gas Actual Respiration Rate 33 Blood Gas Modality VENT - CPAP FiO2 40.0 Blood Gas Low PEEP Setting 5.0 Blood Gas Pressure Support 10 Blood Gas Notified Whom JLD Blood Gas Notified Time 08/03/2016 11:56:46 AM Sodium Level 141 141 Potassium Level 2.7 *L 4.5 3.8 Chloride Level 103 104 Carbon Dioxide Level 28 26 Anion Gap 13 15 Blood Urea Nitrogen 21 H 21 H Creatinine 1.18 H 1.20 H Glucose Level 126 148 Calcium Level 8.3 L 8.5 White Blood Count 11.1 H Red Blood Count 3.39 L Hemoglobin 10.8 L Hematocrit 34.2 L Mean Corpuscular Volume 100.9 Mean Corpuscular Hemoglobin 31.9 Mean Corpuscular Hemoglobin Concent 31.6 L Red Cell Distribution Width 17.2 H Platelet Count 141 Mean Platelet Volume 12.6 H Neutrophils % 77.3 H Lymphocytes % 14.2 L Monocytes % 5.7 Eosinophils % 1.9 Basophils % 0.1 Nucleated Red Blood Cells % 0.2 H Neutrophils # 8.6 H Lymphocytes # 1.6 Monocytes # 0.6 Eosinophils # 0.2 Basophils # 0.0 Nucleated Red Blood Cells # 0.0 Phosphorus Level 2.1 #L Magnesium Level 1.7 Medications Medications Current Medications Dextrose/Sodium Chloride (D5-1/2ns) 1,000 ml @ 25 mls/hr Q24H IV Last administered on 08/03/16 07:00; Admin Dose 25 MLS/HR; Start 07/31/16 at 23:04 Ondansetron HCl (Zofran Inj) 4 mg Q6H PRN IV NAUSEA AND/OR VOMITING; Start at 23:30 Acetaminophen (Tylenol Liquid) 650 mg Q6H PRN PO PAIN LEVEL 1-3 OR FEVER; Start 07/31/16 at 23:30 Lorazepam (Ativan) 1 mg Q2H PRN IV ANXIETY; Start 07/31/16 at 23:30 Famotidine (Pepcid Iv) 20 mg DAILY IV Last administered on 08/04/16 08:45; Admin Dose 20 MG; Start 08/01/16 at 09:00 Heparin Sodium (Porcine) 5000 unit 5,000 unit Q12 SC Last administered on 08:48; Admin Dose 5,000 UNIT; Start 08/01/16 at 09:00 Cefepime HCl 50 ml @ 100 mls/hr Q12 IVPB Last administered on 08/04/16 08:44 ; Admin Dose 100 MLS/HR; Start 08/01/16 at 09:00 Azithromycin 250 ml @ 250 mls/hr Q24H IVPB Last administered on 08/03/16 15: 37; Admin Dose 250 MLS/HR; Start 08/01/16 at 13:30 Fentanyl 100 ml @ 5 mls/hr TITRATE IV Last administered on 08/02/16 04:25; Admin Dose 5 MLS/HR; Start 08/01/16 at 13:30 Propofol (Diprivan) 100 ml @ 2.343 mls/ hr Q12H IV Last administered on 02:39; Admin Dose 7.029 MLS/HR; Start 08/01/16 at 13:30 Levothyroxine Sodium (Synthroid Iv) 75 mcg DAILY IV Last administered on 08:44; Admin Dose 75 MCG; Start 08/01/16 at 13:30 Sertraline HCl 50 mg 50 mg DAILY NGT Last administered on 08/01/16 14:21; Admin Dose 50 MG; Start 08/01/16 at 13:30; Status Future Hold Dobutamine HCl/ Dextrose 250 ml @ 11.715 mls/ hr TITRATE IV Last administered on 08/04/16 09:19; Admin Dose 11.715 MLS/HR; Start 08/01/16 at 16:30 Norepinephrine 16 mg/Dextrose 500 ml @ 1.87 mls/hr TITRATE IV Last administered on 08/03/16 21:00; Admin Dose 6 MLS/HR; Start 08/02/16 at 16:00 Vancomycin HCl 250 ml @ 125 mls/hr Q24H IVPB Last administered on 08/03/16 18 :08; Admin Dose 125 MLS/HR; Start 08/03/16 at 18:00 Potassium Phosphate/Sodium Chloride (K Phos (Mm)/NS) 255 ml @ 63.75 mls/ hr ONCE ONCE IVPB ; Start 08/04/16 at 10:00; Stop 08/04/16 at 13:59 JORGE CHU August 04, 2016 10:51
[2016-08-04 11:08] LABS: AADO2 Arterial 148.5 mmHg (7.0-24.0); Allen Test ACCEPTAB; Arterial Base Excess -0.5 mmol/L (-3.0-3); Arterial COHb 0.4 % (0.0-3.0); Arterial Fraction of Oxyhgb 96.8 % (93.0-99.0); Arterial HCO3 23.3 mmol/L (22.0-26.0); Arterial MetHb 0.3 % (0.0-1.5); Arterial Total Hemglobin 12.3 g/dl (12.0-18.0); Blood Gas PS 10; MODE VENT - CPAP
[2016-08-04] MEDS: AZITHROMYCIN 500MG/NS (PMX) 250 ML IVPB SCH (13:43)
[2016-08-04] MEDS ORDERED: ACETYLCYSTEINE 20% 4 ML VIAL NEB SCH (14:00)
[2016-08-04] MEDS ORDERED: ALBUTEROL/IPRATROPIUM (NEB) 3 ML AMP HHN SCH (14:00)
--- NOTE | 2016-08-04 14:45 | CONS ---
Date/Time of Note Date/Time of Note DATE: 08/04/16 TIME: 14:43 Assessment/Plan Assessment/Plan Chief Complaint/Hosp Course Assessment: Shock - septic vs cardiogenic Acute on chronic systolic heart failure NSTEMI - likely type 2 Acute hypoxic respiratory failure - extubated 08/04/2016 Pneumonia and urinary tract infection - on antibiotics Acute kidney injury Hypothyroidism - TSH 12.8, thyroid replacement per primary team History of hypertension Recommendations: -echocardiogram shows LVEF 20-25%, mild LAE, RVSP 69 mmHg -continue Levophed and dobutamine drips, wean as tolerated -continue Lasix 40mg IV BID -monitor respiratory status, may need re-intubation Problems: Consultation Date/Type/Reason Admit Date/Time July 31, 2016 at 22:25 Type of Consultation: Cardiology 24 HR Interval Summary Free Text/Dictation Extubated today. Tachypneic and tachycardic. Exam/Review of Systems Vital Signs Vitals Vital Signs Date Time Temp Pulse Resp B/P Pulse Ox O2 Delivery O2 Flow Rate FiO2 08/04/16 13:28 107 34 93 Nasal Cannula 3.0 32 08/04/16 09:45 91/64 08/04/16 08:00 97.5 Intake and Output 08/03/16 08/03/16 08/04/16 15:00 23:00 07:00 Intake Total 599.866 ml 1273.469 ml 907.72 ml Output Total 1040 ml 500 ml 675 ml Balance -440.134 ml 773.469 ml 232.72 ml Exam Constitutional: Alert, moderate respiratory distress Psych: No nl mood/affect Head: atraumatic, normocephalic Eyes: nl conjunctiva, nl lids ENMT: nl external ears & nose Neck: supple Respiratory: crackles/rales, diminished breath sounds Cardiovascular: regular rate and rhythm, systolic murmur Gastrointestinal: soft, No distended Musculoskeletal: nl extremities to inspection Extremities: edema, No clubbing, No cyanosis Neurological: No nl mental status, No nl speech Results Result Diagram: 08/04/16 0444 08/04/16 0444 Results 24 hrs Laboratory Tests Test 08/03/16 16:56 08/04/16 00:20 08/04/16 04:44 08/04/16 10:45 Sodium Level 141 141 Potassium Level 2.7 *L 4.5 3.8 Chloride Level 103 104 Carbon Dioxide Level 28 26 Anion Gap 13 15 Blood Urea Nitrogen 21 H 21 H Creatinine 1.18 H 1.20 H Glucose Level 126 148 Calcium Level 8.3 L 8.5 White Blood Count 11.1 H Red Blood Count 3.39 L Hemoglobin 10.8 L Hematocrit 34.2 L Mean Corpuscular Volume 100.9 Mean Corpuscular Hemoglobin 31.9 Mean Corpuscular Hemoglobin Concent 31.6 L Red Cell Distribution Width 17.2 H Platelet Count 141 Mean Platelet Volume 12.6 H Neutrophils % 77.3 H Lymphocytes % 14.2 L Monocytes % 5.7 Eosinophils % 1.9 Basophils % 0.1 Nucleated Red Blood Cells % 0.2 H Neutrophils # 8.6 H Lymphocytes # 1.6 Monocytes # 0.6 Eosinophils # 0.2 Basophils # 0.0 Nucleated Red Blood Cells # 0.0 Phosphorus Level 2.1 #L Magnesium Level 1.7 Blood Gas Specimen Source Blood arterial Arterial Blood Date Drawn 08/04/2016 10:55:49 AM Arterial Blood pH (Temp corrected) 7.432 Arterial Blood pCO2 (Temp correct) 35.8 Arterial Blood pO2 (Temp corrected) 95.5 Arterial Blood HCO3 23.3 Arterial Blood Base Excess -0.5 Arterial Blood Oxygen Saturation 97.5 Clarence Test ACCEPTAB Arterial Blood Gas Puncture Site Right Radial Arterial Blood Carboxyhemoglobin 0.4 Arterial Blood Methemoglobin 0.3 Blood Gas A-a O2 Differential 148.5 H Oxyhemoglobin Percent 96.8 Total Hemoglobin 12.3 Blood Gas Temperature 37.0 Blood Gas Actual Respiration Rate 28 Blood Gas Modality VENT - CPAP FiO2 40.0 Blood Gas Low PEEP Setting 5.0 Blood Gas Pressure Support 10 Blood Gas Notified Whom jld Blood Gas Notified Time 08/04/2016 11:08:30 AM Medications Medications Current Medications Dextrose/Sodium Chloride (D5-1/2ns) 1,000 ml @ 25 mls/hr Q24H IV Last administered on 08/03/16t 07:00; Admin Dose 25 MLS/HR; Start 07/31/16 at 23:04 Ondansetron HCl (Zofran Inj) 4 mg Q6H PRN IV NAUSEA AND/OR VOMITING; Start at 23:30 Acetaminophen (Tylenol Liquid) 650 mg Q6H PRN PO PAIN LEVEL 1-3 OR FEVER; Start 07/31/16 at 23:30 Lorazepam (Ativan) 1 mg Q2H PRN IV ANXIETY; Start 07/31/16 at 23:30 Famotidine (Pepcid Iv) 20 mg DAILY IV Last administered on 08/04/16 08:45; Admin Dose 20 MG; Start 08/01/16 at 09:00 Heparin Sodium (Porcine) 5000 unit 5,000 unit Q12 SC Last administered on 08:48; Admin Dose 5,000 UNIT; Start 08/01/16 at 09:00 Cefepime HCl 50 ml @ 100 mls/hr Q12 IVPB Last administered on 08/04/16 08:44 ; Admin Dose 100 MLS/HR; Start 08/01/16 at 09:00 Azithromycin 250 ml @ 250 mls/hr Q24H IVPB Last administered on 08/04/16 13: 43; Admin Dose 250 MLS/HR; Start 08/01/16 at 13:30 Fentanyl 100 ml @ 5 mls/hr TITRATE IV Last administered on 08/02/16 04:25; Admin Dose 5 MLS/HR; Start 08/01/16 at 13:30 Propofol (Diprivan) 100 ml @ 2.343 mls/ hr Q12H IV Last administered on 02:39; Admin Dose 7.029 MLS/HR; Start 08/01/16 at 13:30 Levothyroxine Sodium (Synthroid Iv) 75 mcg DAILY IV Last administered on 08:44; Admin Dose 75 MCG; Start 08/01/16 at 13:30 Sertraline HCl 50 mg 50 mg DAILY NGT Last administered on 08/01/16 14:21; Admin Dose 50 MG; Start 08/01/16 at 13:30; Status Future Hold Dobutamine HCl/ Dextrose 250 ml @ 11.715 mls/ hr TITRATE IV Last administered on 08/04/16 09:19; Admin Dose 11.715 MLS/HR; Start 08/01/16 at 16:30 Norepinephrine 16 mg/Dextrose 500 ml @ 1.87 mls/hr TITRATE IV Last administered on 08/03/16 21:00; Admin Dose 6 MLS/HR; Start 08/02/16 at 16:00 Vancomycin HCl (Vancocin) 250 ml @ 125 mls/hr Q24H IVPB Last administered on t 18:08; Admin Dose 125 MLS/HR; Start 08/03/16 at 18:00 SHERYL WINTER MD August 04, 2016 14:45
[2016-08-04] MEDS ORDERED: EPINEPHrine 0.1 MG/ML SYG ONE (15:02)
[2016-08-04] MEDS ORDERED: NA BICARBONATE 8.4% 50 ML SYG ONE (15:06)
--- NOTE | 2016-08-04 16:42 | DES ---
Date/Time of Note Date/Time of Note DATE: 08/04/16 TIME: 16:32 Discharge/ Summary Admission/Discharge Info Admit Date/Time July 31, 2016 at 22:25 Discharge Date/Time 08/04 Final Diagnosis 1. Acute hypoxic respiratory failure remains ventilator dependent 2. Shock secondary to severe heart failure versus sepsis from pneumonia 3. Bilateral pneumonia 4. Nitrite positive UTI 5. Acute kidney injury with CKD with oliguria secondary to shock: improving 6. Congestive heart failure exacerbation * echo shows severe CM likely ischemic with EF 20-25% and Pulm HTN 7. Non-STEMI likely type II from shock 8. Hypertension > Hypotension (shock) 9. Poorly controlled hypothyroidism: 10. Chronic depression Preliminary Cause of Acute respiratory failure Hospital Course This a 65-year-old unfortunate female who was brought to the emergency room by ambulance because of shortness of breath. She was diagnosed with sepsis secondary to pneumonia as well as congestive heart failure, she was also found to have elevated troponins and she was managed accordingly. Pulmonary as well as cardiology consultations were obtained. However the patient decompensated acutely and ended up being endotracheally intubated in the emergency room. She was monitored in the ICU throughout her hospital course. She was also in septic shock which was thought to be secondary to pneumonia from aspiration, and required pressor support. Because of cardiomyopathy, congestive heart failure and elevated troponin she was maintained on a dobutamine drip in addition to Levophed. She was also started on broad-spectrum antibiotics. The patient responded well to these therapies, and slowly ventilator and pressor weaning was commenced. Of note is that the patient's friend had noted that the patient was having abnormal behavior prior to hospitalization which included being withdrawn and refusing medication, and she was found to have poorly controlled hypothyroidism consistent with this history. She slowly improved and today she did well with her CPAP trials and was extubated. However notes not after extubation the patient became tachycardic and tachypneic, per nursing report and and then became unresponsive and lost the pulse. She had to be emergently reintubated as a CODE BLUE was called and she was resuscitated for a total of about 30-35 minutes based on ACLS protocol. The emergency room physician, myself, the reception interviewer, and the cigar sorter were all present at the cord throughout. Unfortunately despite our best efforts the patient never regained a pulse, but she did have a rhythm on the monitor and she seemed to have his stated pulse rate again on the monitor but not clinically. During the code however, I spoke with her friend who had brought her into the hospital, as the patient has no family, and who was yellow and focally tell us what the patient wishes would have been. She assured us that the patient would never want to be in a situation where she would be completely dependent on anyone else and she would definitely want not want to leave on the ventilator for the rest of her life or be stuck in a senior living somewhere. However regardless of this, despite our coding efforts, the patient never actually regained a pulse, and eventually the cardiac activity on the monitor became asystole, and I pronounced the patient at 1357. . Pending Labs/Cultures Laboratory Tests Test 08/03/16 16:56 08/04/16 00:20 08/04/16 04:44 08/04/16 10:45 Sodium Level 141mmol/L (135-144) 141mmol/L (135-144) Potassium Level 2.7mmol/L (3.5-5.1) 4.5mmol/L (3.5-5.1) 3.8mmol/L (3.5-5.1) Chloride Level 103mmol/L (97-110) 104mmol/L (97-110) Carbon Dioxide Level 28mmol/L (21-31) 26mmol/L (21-31) Anion Gap 13 (8-16) 15 (8-16) Blood Urea Nitrogen 21mg/dl (7-20) 21mg/dl (7-20) Creatinine 1.18mg/dl (0.44-1.00) 1.20mg/dl (0.44-1.00) Glucose Level 126mg/dl (70-220) 148mg/dl (70-220) Calcium Level 8.3mg/dl (8.4-10.2) 8.5mg/dl (8.4-10.2) White Blood Count 11.110^3/ul (4.8-10.8) Red Blood Count 3.3910^6/ul (4.20-5.40) Hemoglobin 10.8g/dl (12.0-16.0) Hematocrit 34.2% (37.0-47.0) Mean Corpuscular Volume 100.9fl (82.0-101.0) Mean Corpuscular Hemoglobin 31.9pg (29.0-33.0) Mean Corpuscular Hemoglobin Concent 31.6g/dl (32.0-37.0) Red Cell Distribution Width 17.2% (11.5-14.5) Platelet Count 86713^3/UL (140-415) Mean Platelet Volume 12.6fl (7.4-10.4) Neutrophils % 77.3% (39.0-77.0) Lymphocytes % 14.2% (15.0-51.0) Monocytes % 5.7% (0.0-11.0) Eosinophils % 1.9% (0.0-7.0) Basophils % 0.1% (0.0-2.0) Nucleated Red Blood Cells % 0.2/100WBC (0.0-0.0) Neutrophils # 8.610^3/ul (1.6-7.5) Lymphocytes # 1.610^3/ul (0.8-2.9) Monocytes # 0.610^3/ul (0.3-0.9) Eosinophils # 0.210^3/ul (0.0-0.5) Basophils # 0.010^3/ul (0.0-0.1) Nucleated Red Blood Cells # 0.010^3/ul (0.0-0.0) Phosphorus Level 2.1mg/dl (2.5-4.9) Magnesium Level 1.7mg/dl (1.7-2.5) Blood Gas Specimen Source Blood arterial Arterial Blood Date Drawn 08/04/2016 10:55:49 AM Arterial Blood pH (Temp corrected) 7.432 (7.350-7.450) Arterial Blood pCO2 (Temp correct) 35.8mmhg (35-45) Arterial Blood pO2 (Temp corrected) 95.5mmHG (80-100.0) Arterial Blood HCO3 23.3mmol/L (22.0-26.0) Arterial Blood Base Excess -0.5mmol/L (-3.0-3) Arterial Blood Oxygen Saturation 97.5mmHG (95.0-98.0) Clarence Test ACCEPTAB Arterial Blood Gas Puncture Site Right Radial Arterial Blood Carboxyhemoglobin 0.4% (0.0-3.0) Arterial Blood Methemoglobin 0.3% (0.0-1.5) Blood Gas A-a O2 Differential 148.5mmHg (7.0-24.0) Oxyhemoglobin Percent 96.8% (93.0-99.0) Total Hemoglobin 12.3g/dl (12.0-18.0) Blood Gas Temperature 37.0C Blood Gas Actual Respiration Rate 28 Blood Gas Modality VENT - CPAP FiO2 40.0% Blood Gas Low PEEP Setting 5.0cmH2O Blood Gas Pressure Support 10 Blood Gas Notified Whom jld Blood Gas Notified Time 08/04/2016 11:08:30 AM Test 08/04/16 14:56 Bedside Glucose 119mg/dL (70-220) RENATA BEAN August 04, 2016 16:42
--- NOTE | 2016-08-04 17:26 | EN ---
Date/Time of Note Date/Time of Note DATE: 08/04/16 TIME: 17:22 ER Progress Note I was called to ICU room 115 for an intubation. Prior to arriving in the intensive care unit CEDRIC MENDIETA was called in the same room. When I entered the room I saw patient was unresponsive and was undergoing chest compressions. The patient was recently extubated and started to become short of breath and started to become bradycardic and went into a PEA rhythm. The patient was mildly cyanotic. I intubated the patient. Please see intubation. CPR was done via ACLS guidelines. The patient was found to be in asystole on her first pulse check, after 2 rounds of CPR she was in ventricular fibrillation. She was defibrillated twice, and then had return of spontaneous circulation. The patient's primary care physician, and drafter directional survey were in the room. The patient was started on Levophed for maintenance of her blood pressure. Endotracheal Intubation by me: Pre assessment performed. See preceding note for details. Pre-oxygenation performed with 100% oxygen RSI: Performed w/o complication or hypoxic events. Medications as ordered. Blade: [Mac 4] ET Tube: 7.5] cm Depth: 23cm at the lip Intubation confirmed by colorimetric CO2, equal breath sounds, quiet over the stomach. Chest X-ray 1V Interpreted by me: Pending Cardiopulmonary Resuscitation by me: See code documentation for specific details. ACLS and BLS were performed with high quality chest compressions and minimal interruptions. Reversible causes were assessed and treated. SAMMY YANG DO August 04, 2016 17:26
--- NOTE | 2016-08-04 20:39 | RADRPT ---
Vent Rate: 59 bpm RR Interval: 0 msec WI Interval: 0 msec QRS Duration: 162 msec QT Interval: 480 msec QTC Interval: 475 msec P-R-T Carney: 0 - 0 - 67 degrees Wide QRS rhythm with frequent premature ventricular complexes Right bundle branch block Possible Lateral infarct , age undetermined Abnormal ECG Electronically Signed By: Jonatan Chambers [id number]
== END 2016-08-04 15:57 | disposition expired | DRG 871 ==
LOC: E/R 19:59 → ICU 22:25
PROVIDERS: ADMIT Internal Medicine; ATTEND Internal Medicine
PROC: 0BH17EZ Insertion of Endotracheal Airway into Trachea, Via Natural or Artificial Opening (ICD-10-PCS; principal; 2016-07-31)
PROC: 5A1945Z Respiratory Ventilation, 24-96 Consecutive Hours (ICD-10-PCS; 2016-07-31)
PROC: 05H533Z Insertion of Infusion Device into Right Subclavian Vein, Percutaneous Approach (ICD-10-PCS; 2016-07-31)
PROC: 5A1935Z Respiratory Ventilation, Less than 24 Consecutive Hours (ICD-10-PCS; 2016-08-03)
PROC: 0BH17EZ Insertion of Endotracheal Airway into Trachea, Via Natural or Artificial Opening (ICD-10-PCS; 2016-08-03)
PROC: 5A12012 Performance of Cardiac Output, Single, Manual (ICD-10-PCS; 2016-08-03)
PROC: 5A09357 Assistance with Respiratory Ventilation, Less than 24 Consecutive Hours, Continuous Positive Airway Pressure (ICD-10-PCS; 2016-08-03)
DX: A41.9 Sepsis, unspecified organism (principal); R65.21 Severe sepsis with septic shock; J96.01 Acute respiratory failure with hypoxia; I21.4 Non-ST elevation (NSTEMI) myocardial infarction; I50.43 Acute on chronic combined systolic (congestive) and diastolic (congestive) heart failure; I13.0 Hypertensive heart and chronic kidney disease with heart failure and stage 1 through stage 4 chronic kidney disease, or unspecified chronic kidney disease; J18.9 Pneumonia, unspecified organism; N17.9 Acute kidney failure, unspecified; E87.2 Acidosis; N39.0 Urinary tract infection, site not specified; E03.9 Hypothyroidism, unspecified; F32.9 Major depressive disorder, single episode, unspecified; E86.0 Dehydration; N18.9 Chronic kidney disease, unspecified; E87.6 Hypokalemia; E83.42 Hypomagnesemia; D64.9 Anemia, unspecified; I49.01 Ventricular fibrillation; I25.5 Ischemic cardiomyopathy
CPT/HCPCS: 31500; 36600; 71010; 76775; 80048; 80053; 81001; 81003; 82043; 82533; 82550; 82553; 82607; 82803; 82962; 83605; 83690; 83735; 83880; 84100; 84132; 84155; 84300; 84443; 84484; 85025; 85610; 85651; 85730; 87040; 87070; 87081; 87086; 89220; 92950; 93005; 93306; 94002; 94003; 94640; 94770; 96365; 96367; 96375; J0171; J0282; J0456; J0461; J0692; J0696; J1250; J1644; J1940; J2060; J2250; J2543; J3010; J3370; J3475; J3480; J7030; J7040; J7042; J7050; J7060; J7999; P9047